=== PATIENT | male | born 1975 | race Caucasian/White ===

== ENCOUNTER 2020-01-22 02:22 | Inpatient (IN) | payer OTHER ==
[2020-01-22] MEDS ORDERED: Adacel (T-DAP) 0.5 ML SYRINGE ONE (02:31)
[2020-01-22] MEDS ORDERED: Fentanyl 100 MCG/2 ML VIAL ONE (02:35)
[2020-01-22 02:45] LABS: Band 2 % (5-11); Eosinophils 2 % (0-10); Hemoglobin 16.6 g/dL (14.0-18.0); Lymphocytes 36 % (21-51); MDiff Complete? YES; Mean Corpuscular HGB CONC 35.5 g/dL (32.0-36.0); Mean Corpuscular Volume 95.6 fL (78.0-98.0); Mean Platelet Volume 9.6 fL (7.4-10.4); Monocytes 4 % (0-10); Neutrophil 47 % (42-75); Platelet Count 232 thou/uL (130-400); Platelet Morphology Comment Appears Adequate; RBC Distribution Width 11.3 % (11.5-14.5); Reactive Lymphocytes 9 % (0-10); Red Blood Cell (RBC) Count 4.88 mill/uL (4.70-6.10); White Blood Cell (WBC) Count 20.8 thou/uL (4.8-10.8)
[2020-01-22 02:49] LABS: Prothrombin Time 13.6 sec (12.0-14.7)
[2020-01-22 02:51] LABS: Actual Bicarbonate (HCO3a) 18.8 mEq/L (22-28); Analyzer IN Cardio ER; Calcium, Ionized (arterial) 1.25 mmol/L (1.12-1.30); Carboxyhemoglobin (COHb) 7.5 gm% (0.0-3.0); O2 Tension (PaO2), arterial 161.3 mmHg (80.0-100.0); Potassium - ABG Lab 3.78 mmol/L (3.70-5.30); pH, Arterial 7.05 (7.35-7.45)
[2020-01-22 02:52] LABS: Puncture Site RRA
[2020-01-22] MEDS ORDERED: Norepinephrine 8 MG/0.9% NS 250 ML ONE ×2 (02:57→09:23)
[2020-01-22 03:10] LABS: ALT (SGPT) 89 U/L (8-55); AST (SGOT) 92 U/L (5-34); Albumin 4.7 g/dL (3.5-5.0); Alkaline Phosphatase 78 U/L (40-110); Anion Gap 17 mmol/L (10-20); BUN (Urea Nitrogen) 11 mg/dL (8.9-20.6); Bilirubin, Total 0.5 mg/dL (0.2-1.2); Calc. Creatinine Clearance 0 mL/min (70-130); Carbon Dioxide 18 mmol/L (22-29); Chloride 108 mmol/L (98-107); Estimated GFR-MDRD 71; Globulin 2.9 g/dL (2.4-3.5); Glucose 171 mg/dL (70-105); Lipase 37 U/L (8-78); Potassium 3.9 mmol/L (3.5-5.1); Protein, Total 7.6 g/dL (6.0-8.3); Sodium 139 mmol/L (136-145)
[2020-01-22 03:37] LABS: Acetaminophen Less than 6.0 mcg/mL (10.0-30.0); Alcohol 223 mg/dL (Less than 10); Salicylate Less than 8.0 mg/dL (15.0-30.0)
[2020-01-22] MEDS ORDERED: Dexamethasone 10 MG/ML VIAL ONE (03:57)
[2020-01-22] MEDS ORDERED: Dextrose 50% Abboject 50 ML SYRINGE SLOW IVP PRN (04:14)
[2020-01-22] MEDS ORDERED: Dextrose 5% in Water 1,000 ML IV PRN (04:14)
[2020-01-22] MEDS ORDERED: Ondansetron ODT 4 MG TAB PO PRN (04:14)
[2020-01-22] MEDS ORDERED: Ventilator Sedation Protocol 1 EACH FS ONE (04:14)
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
[2020-01-22] MEDS ORDERED: Lorazepam 2 MG/ML VIAL SLOW IVP PRN (04:30)
[2020-01-22] MEDS ORDERED: Morphine 2 MG/ML VIAL SLOW IVP PRN (04:30)
[2020-01-22] MEDS ORDERED: DISCONTINUE PREVIOUS NARCOTIC PAIN MEDICATIONS AND BENZODIAZEPINES FS SCH (04:30)
[2020-01-22] MEDS ORDERED: Propofol BOLUS 1,000 MG/100 ML VIAL IV PRN (04:30)
[2020-01-22] MEDS ORDERED: Propofol 1,000 MG/100 ML VIAL IV PRN (04:30)
[2020-01-22] MEDS ORDERED: Fentanyl BOLUS 250 ML IVPB PRN (04:30)
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
[2020-01-22 06:22] LABS: Lactic Acid 2.3 mmol/L (0.5-2.2)
[2020-01-22] MEDS: Sodium Chloride 0.9% 1,000 ML IV SCH ×2 (06:44→14:44)
[2020-01-22 07:43] LABS: Bilirubin Negative (Negative); Blood, Urine Small (Negative); Glucose, Urine (Dipstick) Negative (Negative); Ketone, Urine Negative (Negative); Leukocyte Negative (Negative); Nitrite Negative (Negative); Protein, Urine (Dipstick) 100 mg/dL (Neg-Trace); Specific Gravity, Urine 1.015 (1.005-1.030); Urobilinogen 0.2 mg/dL (Less than 2)
[2020-01-22 07:48] LABS: RBC/HPF 0-3 HPF (0-3); Squamous Epithelial 0-3 HPF (0-3)
[2020-01-22 07:56] LABS: Amphetamine Not Detected (NotDetected); Barbiturates Screen Not Detected (NotDetected); Benzodiazepine Screen Not Detected (NotDetected); Cocaine Metabolite Screen Not Detected (NotDetected); Medtox Control Line Valid? VALID (VALID); Medtox Reader # READER 4; Methadone Not Detected (NotDetected); Methamphetamine Not Detected (NotDetected); Opiate Screen Not Detected (NotDetected); Oxycodone Screen Not Detected (NotDetected); Phencyclidine (PCP) Not Detected (NotDetected); THC/Cannabinoid Screen Detected (NotDetected); Tricyclic Screen Not Detected (NotDetected)
[2020-01-22 08:03] LABS: Clarity Clear (Clear)
[2020-01-22 08:04] LABS: Bacteria/HPF 1+ HPF (None Seen)
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
[2020-01-22] MEDS ORDERED: Iopamidol-370 76% 500 ML 1 ML ONE (12:38)
[2020-01-22] MEDS ORDERED: Norepinephrine 8 MG/0.9% NS 250 ML IVPB SCH (14:39)
[2020-01-22] MEDS: Famotidine 20 MG TAB PO SCH ×2 (14:41→20:51)
[2020-01-22] MEDS: Acetaminophen 650 MG Suppository PR PRN (18:25)
[2020-01-22] MEDS ORDERED: Vecuronium 10 MG VIAL IVP SCH (19:00)
[2020-01-22] MEDS ORDERED: Lidocaine 1% (PF) 30 ML VIAL SC SCH (19:00)
[2020-01-22] MEDS: fentaNYL Citrate/PF 2,000 MCG in Sodium Chloride 0.9% 60 ML IV SCH (19:01)
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
[2020-01-22] MEDS: Senokot S 8.6-50 MG TAB PER TUBE SCH (20:51)
[2020-01-23] MEDS: Sodium Chloride 0.9% 1,000 ML IV SCH ×3 (01:28→17:35)
[2020-01-23 04:42] LABS: #Lymphocytes 0.9 thou/uL (1.20-3.40); #Monocytes 1.5 thou/uL (0.11-0.59); #Neutrophils 17.2 thou/uL (1.40-6.50); %Basophils 0.1 % (0.0-1.0); %Lymphocytes 4.8 % (21.0-51.0); %Monocytes 7.6 % (0.0-10.0); %Neutrophils 87.5 % (42.0-75.0); Hemoglobin 13.9 g/dL (14.0-18.0); Mean Corpuscular HGB CONC 33.2 g/dL (32.0-36.0); Mean Corpuscular Volume 96.4 fL (78.0-98.0); Mean Platelet Volume 9.6 fL (7.4-10.4); Platelet Count 160 thou/uL (130-400); RBC Distribution Width 11.4 % (11.5-14.5); Red Blood Cell (RBC) Count 4.36 mill/uL (4.70-6.10); White Blood Cell (WBC) Count 19.6 thou/uL (4.8-10.8)
[2020-01-23 05:03] LABS: ALT (SGPT) 53 U/L (8-55); AST (SGOT) 31 U/L (5-34); Albumin 3.7 g/dL (3.5-5.0); Alkaline Phosphatase 44 U/L (40-110); Anion Gap 10 mmol/L (10-20); BUN (Urea Nitrogen) 16 mg/dL (8.9-20.6); Calc. Creatinine Clearance 147 mL/min (70-130); Calcium 8.3 mg/dL (7.8-10.44); Carbon Dioxide 23 mmol/L (22-29); Chloride 110 mmol/L (98-107); Estimated GFR-MDRD Greater than 90; Glucose 134 mg/dL (70-105); Potassium 3.9 mmol/L (3.5-5.1); Protein, Total 5.7 g/dL (6.0-8.3); Sodium 139 mmol/L (136-145)
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
[2020-01-23 06:45] LABS: Actual Bicarbonate (HCO3a) 20.5 mEq/L (22-28); Base Excess (BEa) -3.4 mEq/L (-2.0 to +3.0); CO2 Tension 33.9 mmHg (35.0-45.0); Calcium, Ionized (arterial) 1.18 mmol/L (1.12-1.30); Carboxyhemoglobin (COHb) 0.8 gm% (0.0-3.0); Hemoglobin (Hb) 14.8 g/dL (14.0-18.0); Potassium - ABG Lab 3.93 mmol/L (3.70-5.30)
[2020-01-23 07:41] LABS: O2 Tension (PaO2), arterial 47.5 mmHg (80.0-100.0); Puncture Site RRAD
[2020-01-23 07:42] LABS: ALV-art Gradient 195.325 (0-20)
--- NOTE | 2020-01-23 07:54 | RAD ---
Chest one view HISTORY: Intubated. Dyspnea. Aspiration. COMPARISON: 01/22/2020. FINDINGS: Cardiac silhouette is magnified by projection. Pulmonary vasculature is slightly engorged. Bilateral perihilar infiltrates have become more dense, left greater than right. Mediastinum is midline. Lines and tubes appear unchanged in position. No evidence of pneumothorax. IMPRESSION : Developing bilateral perihilar infiltrates could be related to vascular congestion or developing neur ogenic edema.
[2020-01-23] MEDS ORDERED: EPINEPHrine 1 MG/ML AMP ONE (08:01)
[2020-01-23] MEDS ORDERED: Bupivacaine 0.25% HCL 30 ML VIAL ONE (08:01)
[2020-01-23] MEDS ORDERED: Lidocaine 1% w/Epinephrine 1:100K 20 ML VIAL ONE (08:12)
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
[2020-01-23] MEDS ORDERED: Albumin 25% 0 ML ONE (08:32)
[2020-01-23] MEDS: Midazolam HCl 2 mg/2 ml Vial SLOW IVP SCH (08:42)
[2020-01-23] MEDS: Fentanyl 100 MCG/2 ML VIAL SLOW IVP SCH ×2 (08:55→08:56)
[2020-01-23] MEDS: Famotidine 20 MG TAB PO SCH ×2 (09:00→20:29)
[2020-01-23] MEDS ORDERED: CEFAZOLIN 2 GM in Premix Bag 1 BAG IVPB SCH (09:15)
[2020-01-23] MEDS ORDERED: Midazolam HCl 2 mg/2 ml Vial ONE ×2 (09:25→09:37)
[2020-01-23] MEDS ORDERED: Norepinephrine 8 MG/0.9% NS 250 ML ONE (09:37)
[2020-01-23] MEDS: Senokot S 8.6-50 MG TAB PER TUBE SCH ×2 (10:41→20:29)
[2020-01-23] MEDS: fentaNYL Citrate/PF 2,000 MCG in Sodium Chloride 0.9% 60 ML IV SCH (10:42)
[2020-01-23] MEDS: HumaLOG 300 UNITS/3 ML VIAL SC PRN (10:48)
[2020-01-23] MEDS: Piperacillin/Tazobactam 4.5 GM in Sodium Chloride 0.9% 100 ML IVPB SCH ×2 (11:37→17:33)
[2020-01-23 12:19] LABS: SARS-CoV-2 MS2 Positive; SARS-CoV-2 N Gene Negative; SARS-CoV-2 S Gene Negative; SARS-CoV-2 by NAA Not Detected (NotDetected); SARS-CoV-2 orf1ab Negative
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
[2020-01-23] MEDS: Acetaminophen 650 MG Suppository PR PRN (15:10)
[2020-01-23] MEDS: Enoxaparin Sodium 30 MG/0.3 ML SYRINGE SC SCH (20:29)
[2020-01-24] MEDS: Sodium Chloride 0.9% 1,000 ML IV SCH ×3 (01:08→16:44)
[2020-01-24] MEDS: Piperacillin/Tazobactam 4.5 GM in Sodium Chloride 0.9% 100 ML IVPB SCH ×4 (01:08→17:34)
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
[2020-01-24] MEDS: Acetaminophen 650 MG Suppository PR PRN (04:26)
[2020-01-24 05:28] LABS: Anion Gap 8 mmol/L (10-20); BUN (Urea Nitrogen) 19 mg/dL (8.9-20.6); Calc. Creatinine Clearance 131 mL/min (70-130); Calcium 8.7 mg/dL (7.8-10.44); Carbon Dioxide 28 mmol/L (22-29); Chloride 109 mmol/L (98-107); Estimated GFR-MDRD 87; Glucose 101 mg/dL (70-105); Magnesium 2.1 mg/dL (1.6-2.6); Potassium 4.2 mmol/L (3.5-5.1); Sodium 141 mmol/L (136-145)
[2020-01-24 05:34] LABS: Phosphorus Less than 1.0 mg/dL (2.3-4.7)
[2020-01-24 05:36] LABS: #Lymphocytes 1.2 thou/uL (1.20-3.40); #Neutrophils 8.6 thou/uL (1.40-6.50); %Basophils 0.1 % (0.0-1.0); %Eosinophils 0.1 % (0.0-10.0); %Lymphocytes 10.9 % (21.0-51.0); %Monocytes 9.2 % (0.0-10.0); %Neutrophils 79.7 % (42.0-75.0); Hemoglobin 11.8 g/dL (14.0-18.0); Mean Corpuscular HGB CONC 33.6 g/dL (32.0-36.0); Mean Corpuscular Hemoglobin 32.9 pg (27.0-31.0); Mean Corpuscular Volume 98.1 fL (78.0-98.0); Platelet Count 106 thou/uL (130-400); Platelet Morphology Comment Appears Decreased; RBC Distribution Width 11.5 % (11.5-14.5); Red Blood Cell (RBC) Count 3.58 mill/uL (4.70-6.10); White Blood Cell (WBC) Count 10.7 thou/uL (4.8-10.8)
[2020-01-24] MEDS ORDERED: Acetaminophen 650 MG/20.3 ML UDCUP PO PRN (05:47)
[2020-01-24] MEDS ORDERED: PHOS-NAK 1 PKT PACK PO SCH (06:00)
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
[2020-01-24] MEDS ORDERED: Potassium Phosphate 30 MMOL in Sodium Chloride 0.9% 250 ML 250 ML IVPB SCH (07:30)
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
[2020-01-24] MEDS: Senokot S 8.6-50 MG TAB PER TUBE SCH ×2 (08:30→21:13)
[2020-01-24] MEDS: Enoxaparin Sodium 30 MG/0.3 ML SYRINGE SC SCH ×2 (08:31→21:14)
[2020-01-24] MEDS: Famotidine/PF 20 mg/2ml Vial SLOW IVP SCH ×2 (08:31→21:14)
--- NOTE | 2020-01-24 10:55 | PRG ---
DATE OF SERVICE: 01/24/2020 Mr. Centeno is generally clinically unchanged. He is alert, sitting up in bed with a cervical collar on. He is able to mouth words and does seem to have some pain, which his nurse has just increased his intravenous narcotic for. Overall, his prognosis for neurologic recovery remains quite poor. Focus will be on his rehab. He will need to wear the cervical collar at all times and can be maximized with DVT prophylaxis from a neurosurgical perspective. I will plan a followup x-ray in 4 weeks and we can coordinate this at his rehab or LTAC if it is more convenient. Job ID: [id number]
[2020-01-24] MEDS: fentaNYL Citrate/PF 2,000 MCG in Sodium Chloride 0.9% 60 ML IV SCH (11:35)
[2020-01-24 15:07] LABS: Anion Gap 7 mmol/L (10-20); BUN (Urea Nitrogen) 22 mg/dL (8.9-20.6); Calc. Creatinine Clearance 116 mL/min (70-130); Calcium 8.6 mg/dL (7.8-10.44); Carbon Dioxide 30 mmol/L (22-29); Chloride 110 mmol/L (98-107); Estimated GFR-MDRD 76; Glucose 104 mg/dL (70-105); Magnesium 2.4 mg/dL (1.6-2.6); Potassium 4.9 mmol/L (3.5-5.1); Sodium 142 mmol/L (136-145)
[2020-01-24] MEDS ORDERED: Pancrelipase DR 12,000 1 CAP FS PRN (16:24)
[2020-01-24] MEDS ORDERED: Sodium Bicarbonate Tab 325 MG TAB PER TUBE PRN (16:24)
[2020-01-25] MEDS: Piperacillin/Tazobactam 4.5 GM in Sodium Chloride 0.9% 100 ML IVPB SCH ×2 (00:22→06:01)
[2020-01-25] MEDS ORDERED: Lorazepam 2 MG/ML VIAL SLOW IVP SCH (01:15)
--- NOTE | 2020-01-25 02:26 | PDOC.EVN ---
Event Note - Event Note Event Note: Notified that pt was having what appeared to be seizure activity, facial twitching, eye movement and appearing less responsive. 2mg Ativan given, Stat labs, BMP, Mg, Phos, PROLACTIN, CBC and cultures ordered. CXR and Brain CT ordered. Brain CT showed no intracranial changes, epidural spinal hematoma noted at C1-2. Upon return from CT scanner it was noted that pts temp was > 106. Cooling blankets applied and one gram of tylenol via peg tube.
[2020-01-25 02:42] LABS: #Lymphocytes 0.8 thou/uL (1.20-3.40); #Monocytes 0.9 thou/uL (0.11-0.59); #Neutrophils 7.5 thou/uL (1.40-6.50); %Eosinophils 0.1 % (0.0-10.0); %Lymphocytes 8.9 % (21.0-51.0); %Neutrophils 80.9 % (42.0-75.0); Mean Corpuscular HGB CONC 33.4 g/dL (32.0-36.0); Mean Corpuscular Hemoglobin 33.6 pg (27.0-31.0); Mean Platelet Volume 9.5 fL (7.4-10.4); Platelet Count 79 thou/uL (130-400); RBC Distribution Width 11.4 % (11.5-14.5); Red Blood Cell (RBC) Count 3.28 mill/uL (4.70-6.10); White Blood Cell (WBC) Count 9.3 thou/uL (4.8-10.8)
[2020-01-25] MEDS ORDERED: Acetaminophen 650 MG/20.3 ML UDCUP PO SCH (03:00)
[2020-01-25 03:22] LABS: Anion Gap 8 mmol/L (10-20); BUN (Urea Nitrogen) 23 mg/dL (8.9-20.6); Calc. Creatinine Clearance 99 mL/min (70-130); Calcium 8.4 mg/dL (7.8-10.44); Carbon Dioxide 31 mmol/L (22-29); Chloride 107 mmol/L (98-107); Estimated GFR-MDRD 64; Glucose 121 mg/dL (70-105); Magnesium 2.4 mg/dL (1.6-2.6); Phosphorus Less than 1.0 mg/dL (2.3-4.7); Potassium 4.5 mmol/L (3.5-5.1); Sodium 141 mmol/L (136-145)
[2020-01-25] MEDS ORDERED: Sodium Phosphate 30 MMOL in Sodium Chloride 0.9% 250 ML 250 ML IVPB SCH ×2 (04:00→09:00)
[2020-01-25 04:54] LABS: Bilirubin Negative (Negative); Blood, Urine Trace (Negative); Glucose, Urine (Dipstick) Negative (Negative); Ketone, Urine Negative (Negative); Leukocyte Negative (Negative); Nitrite Negative (Negative); Protein, Urine (Dipstick) Trace mg/dL (Neg-Trace); Specific Gravity, Urine 1.025 (1.005-1.030); pH, Urine 5.5 (5.0-9.0)
[2020-01-25 05:01] LABS: Clarity Clear (Clear)
[2020-01-25 05:02] LABS: Urine Culture Reflex No No
[2020-01-25 05:03] LABS: Bacteria/HPF None Seen HPF (None Seen); RBC/HPF 0-3 HPF (0-3); Squamous Epithelial 0-3 HPF (0-3); WBC/HPF 0-3 HPF (0-3)
--- NOTE | 2020-01-25 07:18 | PRG ---
DATE OF SERVICE: 01/25/2020 SUBJECTIVE: Overnight, the patient had significant elevation of his temperature up to 106 and a seizure event. He was evaluated with a repeat noncontrast CT head and neck, which is stable. His labs show a normal WBC at 9.3. His fever was treated and he is improved this morning. CXR shows worsening bilateral infiltrates. He is curretly on zosyn. OBJECTIVE: Afebrile, VSS. On exam, he awakens easily and responds appropriately to questions by shaking his head and mouthing words. PLAN: We will defer ongoing medical management and worsening bilateral infiltrates to the Trauma team. He is currently on Zosyn and we will continue. We will continue cooling measures and to monitor his temperature and lab work closely. Continue to work with PT, OT, and work toward placement. Job ID: [id number] MTDKesha
--- NOTE | 2020-01-25 07:57 | RAD ---
XR Chest 1 View Portable History: Respiratory failure Comparison: Radiograph 2 days prior Findings: Progressive increase airspace opacity. The lungs. No pneumothorax. No acute osseous abnorma lity. Tracheostomy tube tip is at level of the clavicles. Impression: Multifocal airspace opacities concerning for progressive edema.
[2020-01-25 08:17] LABS: Actual Bicarbonate (HCO3a) 26.8 mEq/L (22-28); Base Excess (BEa) -0.1 mEq/L (-2.0 to +3.0); CO2 Tension 54.6 mmHg (35.0-45.0); Calcium, Ionized (arterial) 1.15 mmol/L (1.12-1.30); Carboxyhemoglobin (COHb) 0.2 gm% (0.0-3.0); Hemoglobin (Hb) 11.2 g/dL (14.0-18.0); O2 Tension (PaO2), arterial 137.1 mmHg (80.0-100.0); Potassium - ABG Lab 3.56 mmol/L (3.70-5.30); pH, Arterial 7.31 (7.35-7.45)
[2020-01-25 08:18] LABS: Puncture Site RBA
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
[2020-01-25] MEDS: Sodium Chloride 0.9% 1,000 ML IV SCH ×4 (08:45→19:55)
[2020-01-25] MEDS: Acetaminophen 650 MG/20.3 ML UDCUP PO SCH ×3 (08:45→19:55)
[2020-01-25] MEDS: Famotidine/PF 20 mg/2ml Vial SLOW IVP SCH ×2 (08:46→19:55)
[2020-01-25] MEDS: Senokot S 8.6-50 MG TAB PER TUBE SCH ×2 (08:46→19:56)
[2020-01-25 10:28] LABS: Actual Bicarbonate (HCO3a) 27.7 mEq/L (22-28); Base Excess (BEa) 2.3 mEq/L (-2.0 to +3.0); CO2 Tension 46.2 mmHg (35.0-45.0); Calcium, Ionized (arterial) 1.12 mmol/L (1.12-1.30); Carboxyhemoglobin (COHb) 0.2 gm% (0.0-3.0); Hemoglobin (Hb) 11.4 g/dL (14.0-18.0); Potassium - ABG Lab 3.74 mmol/L (3.70-5.30)
[2020-01-25 10:32] LABS: Puncture Site RRA
--- NOTE | 2020-01-25 12:04 | ULT ---
EXAM: Bilateral lower extremity venous Doppler HISTORY: Paraplegia, immobile patient. High-risk for DVT. FINDINGS: Grayscale, color-flow, Doppler evaluation, spectral analysis of the bilateral lower extremity venous structures is performed with 2-D imaging. The bilateral common femoral, superficial femoral, popliteal, posterior tibial, proximal greater saphenous and profunda femoral veins are imaged. There is normal luminal compressibility, flow, and augmentation in the visualized deep venous structu res of the bilateral lower extremities. IMPRESSION: No evidence of a deep vein thrombosis in the visualized deep venous structures bilateral lower extrem ities.
[2020-01-25] MEDS: Cefepime 2 GM in Sodium Chloride 0.9% 100 ML IVPB SCH ×2 (13:31→21:52)
[2020-01-25] MEDS: traMADol HCl 50 MG TAB PO PRN ×2 (13:39→20:05)
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
[2020-01-25] MEDS: Enoxaparin Sodium 30 MG/0.3 ML SYRINGE SC SCH (19:56)
[2020-01-25 20:17] LABS: Anion Gap 12 mmol/L (10-20); BUN (Urea Nitrogen) 26 mg/dL (8.9-20.6); Calc. Creatinine Clearance 149 mL/min (70-130); Calcium 8.2 mg/dL (7.8-10.44); Carbon Dioxide 27 mmol/L (22-29); Chloride 109 mmol/L (98-107); Estimated GFR-MDRD Greater than 90; Glucose 124 mg/dL (70-105); Magnesium 2.3 mg/dL (1.6-2.6); Phosphorus 4.1 mg/dL (2.3-4.7); Potassium 3.9 mmol/L (3.5-5.1); Sodium 144 mmol/L (136-145)
--- NOTE | 2020-01-25 21:58 | PRG ---
DATE OF SERVICE: 01/25/2020 SUBJECTIVE: The patient was very febrile overnight, reportedly to a high of 106 degrees. He had a seizure. CT of the head is normal. During the CT of the head, they did visualize down to C2 and there was some right-sided blood in the cervical canal. This is noncompressive and is at the site of the C2 fracture. IMPRESSION AND PLAN: The CT of the head and neck do not explain the seizure or the fever. The blood in the cervical canal is nonsurgical and will resolve. I suspect his depressed mental status was postictal in nature or perhaps represents alcohol withdrawal or delirium tremens. I have recommended surveillance ultrasound for DVT today. Job ID: [id number]
[2020-01-25] MEDS: Morphine 4 MG/ML VIAL SLOW IVP PRN (22:00)
[2020-01-26] MEDS: Acetaminophen 650 MG/20.3 ML UDCUP PO SCH ×4 (02:55→20:11)
[2020-01-26] MEDS: Morphine 4 MG/ML VIAL SLOW IVP PRN ×4 (02:58→23:34)
--- NOTE | 2020-01-26 03:12 | PRG ---
DATE OF SERVICE: 01/25/2020 SUBJECTIVE: The patient was seen during evening rounds, resting comfortably on full ventilatory support. The patient's fentanyl drip was discontinued earlier today and has been tolerating without. The patient's urinary output continues to be adequate for the patient's age and weight. PLAN: Continue antibiotics. Increase physical and occupational therapy. Job ID: [id number]
[2020-01-26 03:42] LABS: Band 27 % (5-11); Eosinophils 1 % (0-10); Hemoglobin 11.1 g/dL (14.0-18.0); Lymphocytes 16 % (21-51); MDiff Complete? YES; Mean Corpuscular Hemoglobin 33.5 pg (27.0-31.0); Mean Corpuscular Volume 98.7 fL (78.0-98.0); Mean Platelet Volume 10.1 fL (7.4-10.4); Monocytes 4 % (0-10); Neutrophil 52 % (42-75); Platelet Count 88 thou/uL (130-400); Platelet Morphology Comment Appears Decreased; RBC Distribution Width 11.5 % (11.5-14.5); White Blood Cell (WBC) Count 9.3 thou/uL (4.8-10.8)
[2020-01-26 03:46] LABS: Anion Gap 10 mmol/L (10-20); BUN (Urea Nitrogen) 26 mg/dL (8.9-20.6); Calc. Creatinine Clearance 146 mL/min (70-130); Calcium 8.4 mg/dL (7.8-10.44); Carbon Dioxide 28 mmol/L (22-29); Chloride 111 mmol/L (98-107); Estimated GFR-MDRD Greater than 90; Glucose 162 mg/dL (70-105); Magnesium 2.3 mg/dL (1.6-2.6); Phosphorus 1.8 mg/dL (2.3-4.7); Sodium 145 mmol/L (136-145)
[2020-01-26] MEDS ORDERED: Sodium Phosphate 30 MMOL in Sodium Chloride 0.9% 250 ML 250 ML IVPB SCH (04:15)
[2020-01-26] MEDS: Cefepime 2 GM in Sodium Chloride 0.9% 100 ML IVPB SCH ×3 (05:04→22:09)
[2020-01-26] MEDS: Sodium Chloride 0.9% 1,000 ML IV SCH (05:53)
--- NOTE | 2020-01-26 06:27 | PRG ---
DATE OF SERVICE: 01/26/2020 SUBJECTIVE: The patient has had no overnight events. He continues to run intermittent fever of as high as 102, but does respond to cooling measures. He had an ultrasound of his legs yesterday, which was negative for DVTs. He is tolerating his tube feeds. On exam this morning, his neurological exam is unchanged. He remains responsive with eye opening and mouthing words as well as head nods. The patient's neurologic exam is stable. He continues to get treatment for his suspected pneumonia. I will defer medical management to the Trauma Team. Continue PT, OT, and working towards placement. Job ID: [id number]
[2020-01-26 07:09] LABS: Actual Bicarbonate (HCO3a) 26.6 mEq/L (22-28); Base Excess (BEa) 2.2 mEq/L (-2.0 to +3.0); CO2 Tension 40.7 mmHg (35.0-45.0); Calcium, Ionized (arterial) 1.16 mmol/L (1.12-1.30); Hemoglobin (Hb) 11.7 g/dL (14.0-18.0); Potassium - ABG Lab 4.04 mmol/L (3.70-5.30); pH, Arterial 7.43 (7.35-7.45)
[2020-01-26 07:14] LABS: ALV-art Gradient 180.975 (0-20); Puncture Site RRA
[2020-01-26] MEDS: traMADol HCl 50 MG TAB PO PRN (07:32)
[2020-01-26] MEDS ORDERED: Magnesium 2 GM/50 ML 2 GM in Premix Bag 1 BAG IVPB SCH (07:45)
[2020-01-26] MEDS ORDERED: VANCOMYCIN IVPB PRN (08:19)
[2020-01-26] MEDS: Famotidine/PF 20 mg/2ml Vial SLOW IVP SCH ×2 (08:30→20:12)
[2020-01-26] MEDS: Senokot S 8.6-50 MG TAB PER TUBE SCH ×2 (08:31→20:12)
[2020-01-26] MEDS: Enoxaparin Sodium 30 MG/0.3 ML SYRINGE SC SCH ×2 (08:31→20:12)
[2020-01-26] MEDS: Vancomycin 1.5 GRAM/300 ML BAG 1.5 GM in Premix Bag 1 BAG IVPB SCH ×2 (09:02→16:02)
[2020-01-26] MEDS: Saccharomyces boulardii 250 MG CAP PO SCH ×2 (09:02→20:12)
--- NOTE | 2020-01-26 09:55 | RAD ---
CHEST 1 VIEW: Date: 01/26/2020 INDICATION: History of pneumonia. COMPARISON: Prior exam dated 01/25/2020. IMPRESSION: Bilateral lower lobe air space disease is stable appearing. Tracheostomy tube is unchanged. No pleura l effusion or pneumothorax is grossly evident. POS: BH
[2020-01-26] MEDS ORDERED: Furosemide 20 MG/2 ML VIAL SLOW IVP SCH (10:30)
[2020-01-26] MEDS: Midazolam HCl 2 mg/2 ml Vial SLOW IVP SCH (10:39)
[2020-01-26] MEDS: HumaLOG 300 UNITS/3 ML VIAL SC PRN ×2 (12:42→18:45)
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
[2020-01-26 18:04] LABS: Anion Gap 10 mmol/L (10-20); BUN (Urea Nitrogen) 25 mg/dL (8.9-20.6); Calc. Creatinine Clearance 159 mL/min (70-130); Carbon Dioxide 26 mmol/L (22-29); Chloride 109 mmol/L (98-107); Estimated GFR-MDRD Greater than 90; Glucose 169 mg/dL (70-105); Magnesium 2.4 mg/dL (1.6-2.6); Phosphorus 2.3 mg/dL (2.3-4.7); Potassium 3.9 mmol/L (3.5-5.1); Sodium 141 mmol/L (136-145)
[2020-01-26] MEDS ORDERED: Potassium Phosphate 30 MMOL in Sodium Chloride 0.9% 250 ML 250 ML IVPB SCH (19:00)
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
[2020-01-27 00:51] LABS: Vancomycin, Trough 8.8 ug/mL
[2020-01-27] MEDS: Vancomycin 1.5 GRAM/300 ML BAG 1.5 GM in Premix Bag 1 BAG IVPB SCH (01:25)
[2020-01-27] MEDS: Vancomycin HCl 1.75 GM in Sodium Chloride 0.9% 500 ML IVPB SCH ×3 (02:06→18:08)
[2020-01-27] MEDS: Acetaminophen 650 MG/20.3 ML UDCUP PO SCH ×4 (03:11→20:48)
[2020-01-27 04:01] LABS: Anion Gap 10 mmol/L (10-20); BUN (Urea Nitrogen) 28 mg/dL (8.9-20.6); Calc. Creatinine Clearance 172 mL/min (70-130); Calcium 8.4 mg/dL (7.8-10.44); Carbon Dioxide 26 mmol/L (22-29); Chloride 112 mmol/L (98-107); Estimated GFR-MDRD Greater than 90; Glucose 188 mg/dL (70-105); Magnesium 2.4 mg/dL (1.6-2.6); Phosphorus 2.6 mg/dL (2.3-4.7); Sodium 144 mmol/L (136-145)
[2020-01-27 04:03] LABS: Band 5 % (5-11); Hemoglobin 11.3 g/dL (14.0-18.0); Hypochromia SLIGHT = 6-15 cells (100X) (0-5/hpf); Lymphocytes 6 % (21-51); MDiff Complete? YES; Mean Corpuscular HGB CONC 34.1 g/dL (32.0-36.0); Mean Corpuscular Hemoglobin 34.1 pg (27.0-31.0); Mean Corpuscular Volume 99.9 fL (78.0-98.0); Monocytes 8 % (0-10); Neutrophil 81 % (42-75); Platelet Count 93 thou/uL (130-400); Platelet Morphology Comment Appears Decreased; RBC Distribution Width 11.6 % (11.5-14.5); Red Blood Cell (RBC) Count 3.32 mill/uL (4.70-6.10); White Blood Cell (WBC) Count 7.4 thou/uL (4.8-10.8)
[2020-01-27] MEDS: HumaLOG 300 UNITS/3 ML VIAL SC PRN ×2 (05:15→17:04)
[2020-01-27] MEDS: Cefepime 2 GM in Sodium Chloride 0.9% 100 ML IVPB SCH ×3 (05:15→20:50)
[2020-01-27] MEDS: Morphine 4 MG/ML VIAL SLOW IVP PRN ×3 (05:20→19:16)
[2020-01-27] MEDS ORDERED: Atropine Sulfate 1 mg/10 ml Syringe ONE (05:55)
--- NOTE | 2020-01-27 06:42 | PRG ---
DATE OF SERVICE: 01/27/2020 This morning during trach care, the patient had a bradycardic and subsequent short period of asystole several times. Sohail whiting was called and the appropriate care providers presented to the bedside. Pt has ROSC. The patient was treated with 0.5 mg of atropine as ordered by trauma team. He is being monitored closely at the bedside He appears somewhat uncomfortable, but is responding appropriately to eye blinking, head nod and mouthing words. He is a bit diaphoretic. His heart rate is currently in the 90s. The remainder of his neurologic exam is unchanged. The patient has suffered several short periods of asystole following trach care. We will monitor closely. Trauma is at the bedside and assisting with medical management. Job ID: [id number] [facility]
[2020-01-27 07:20] LABS: Actual Bicarbonate (HCO3a) 25.5 mEq/L (22-28); Base Excess (BEa) 0.7 mEq/L (-2.0 to +3.0); CO2 Tension 41.8 mmHg (35.0-45.0); Carboxyhemoglobin (COHb) 0.3 gm% (0.0-3.0); Hemoglobin (Hb) 11.3 g/dL (14.0-18.0); O2 Tension (PaO2), arterial 81.6 mmHg (80.0-100.0); Potassium - ABG Lab 4.14 mmol/L (3.70-5.30)
[2020-01-27 07:40] LABS: Puncture Site RRAD
--- NOTE | 2020-01-27 09:03 | RAD ---
CHEST 1 VIEW PORTABLE: HISTORY: Followup pneumonia. COMPARISON: 01/26/2020. FINDINGS: Tracheostomy tube in place. Persistent bilateral perihilar and lower lobe opacity changes with some bilateral pleural effusion changes. Overall appearance is little changed from prior study. IMPRESSION: Stable bilateral vascular congestion and bilateral interstitial and alveolar opacity changes, particu larly in the mid and lower lung zones with evidence for bilateral pleural effusions. Continued short -term followup. POS: OFF
[2020-01-27] MEDS: Enoxaparin Sodium 30 MG/0.3 ML SYRINGE SC SCH ×2 (09:24→20:49)
[2020-01-27] MEDS: Saccharomyces boulardii 250 MG CAP PO SCH ×2 (09:26→20:50)
[2020-01-27] MEDS: Famotidine/PF 20 mg/2ml Vial SLOW IVP SCH ×2 (09:26→20:47)
[2020-01-27] MEDS ORDERED: Sodium Phosphate 30 MMOL in Sodium Chloride 0.9% 250 ML 250 ML IVPB SCH (09:30)
[2020-01-27] MEDS: Senokot S 8.6-50 MG TAB PER TUBE SCH ×2 (09:32→20:47)
--- NOTE | 2020-01-27 09:33 | PRG ---
DATE OF SERVICE: 01/27/2020 Mr. Centeno is now resting comfortably. He had an issue with disconnection from the ventilator circuit, which resulted in some mild hemodynamic instability, which has now been effectively treated. Fever remains an issue, although it is gradually improving. He had no evidence of DVT on ultrasound. From a neurosurgical perspective, we have no plans for surgical intervention. I will arrange for followup x-rays either here or in rehab in 4 weeks. I would recommend a cervical collar at all times and from a neurosurgical perspective, he can be discharged to long-term placement at any point. Job ID: [id number]
[2020-01-27] MEDS: Furosemide 20 MG/2 ML VIAL SLOW IVP SCH ×2 (10:05→20:47)
[2020-01-27] MEDS: Ibuprofen 100 MG/5 ML UDCUP PER TUBE PRN (13:30)
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
--- NOTE | 2020-01-27 17:03 | EKG ---
Test Reason : STAT Blood Pressure : / mmHG Vent. Rate : 028 BPM Atrial Rate : 038 BPM P-R Int : 124 ms QRS Dur : 090 ms QT Int : 384 ms P-R-T Axes : 062 086 068 degrees QTc Int : 261 ms Marked sinus bradycardia with sinus arrest serious more than 2 second pauses Abnormal ECG When compared with ECG of 22-JAN-2020 04:09, (Unconfirmed) Vent. rate has decreased BY 34 BPM Non-specific change in ST segment in Lateral leads Nonspecific T wave abnormality now evident in Inferior leads Nonspecific T wave abnormality, worse in Anterolateral leads QT has shortened Confirmed by DR. Kenny COFFMAN ([id number]) on 01/27/2020 5:03:19 PM Referred By: Richard AMANDA Confirmed By:DR. Kenny COFFMAN
[2020-01-27 18:33] LABS: Anion Gap 11 mmol/L (10-20); BUN (Urea Nitrogen) 31 mg/dL (8.9-20.6); Calc. Creatinine Clearance 138 mL/min (70-130); Calcium 8.6 mg/dL (7.8-10.44); Carbon Dioxide 27 mmol/L (22-29); Chloride 110 mmol/L (98-107); Estimated GFR-MDRD 90; Glucose 195 mg/dL (70-105); Magnesium 2.5 mg/dL (1.6-2.6); Phosphorus 3.7 mg/dL (2.3-4.7); Potassium 4.2 mmol/L (3.5-5.1); Sodium 144 mmol/L (136-145)
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
[2020-01-27] MEDS: traMADol HCl 50 MG TAB PO SCH (23:59)
[2020-01-28] MEDS: Vancomycin HCl 1.75 GM in Sodium Chloride 0.9% 500 ML IVPB SCH ×3 (01:16→18:18)
[2020-01-28 01:23] LABS: Vancomycin, Trough 18.3 ug/mL
[2020-01-28] MEDS: Acetaminophen 650 MG/20.3 ML UDCUP PO SCH ×4 (03:24→20:11)
[2020-01-28 04:21] LABS: Band 7 % (5-11); Eosinophils 1 % (0-10); Hemoglobin 10.9 g/dL (14.0-18.0); Lymphocytes 11 % (21-51); MDiff Complete? YES; Mean Corpuscular Hemoglobin 33.3 pg (27.0-31.0); Mean Platelet Volume 10.2 fL (7.4-10.4); Monocytes 11 % (0-10); Myelocyte 1 % (0-0); Neutrophil 69 % (42-75); Platelet Count 121 thou/uL (130-400); RBC Distribution Width 11.7 % (11.5-14.5); Red Blood Cell (RBC) Count 3.26 mill/uL (4.70-6.10); White Blood Cell (WBC) Count 8.6 thou/uL (4.8-10.8)
[2020-01-28 04:44] LABS: Anion Gap 12 mmol/L (10-20); BUN (Urea Nitrogen) 30 mg/dL (8.9-20.6); Calc. Creatinine Clearance 161 mL/min (70-130); Calcium 8.6 mg/dL (7.8-10.44); Carbon Dioxide 27 mmol/L (22-29); Chloride 111 mmol/L (98-107); Estimated GFR-MDRD Greater than 90; Glucose 150 mg/dL (70-105); Magnesium 2.4 mg/dL (1.6-2.6); Phosphorus 2.6 mg/dL (2.3-4.7); Potassium 4.1 mmol/L (3.5-5.1); Sodium 146 mmol/L (136-145)
[2020-01-28] MEDS: Cefepime 2 GM in Sodium Chloride 0.9% 100 ML IVPB SCH ×3 (05:28→21:28)
[2020-01-28] MEDS: traMADol HCl 50 MG TAB PO SCH ×4 (05:28→23:57)
--- NOTE | 2020-01-28 07:52 | RAD ---
Chest AP view INDICATION: Pneumonia COMPARISON: Prior exam dated January 27, 2020 FINDINGS: Patient is slightly rotated to the right. Lungs: Bilateral lower lobe airspace disease, left greater than right is stable. Cardiac silhouette: Heart size remains mildly prominent Pulmonary vasculature: Pulmonary vascular congestion persists Pleural spaces: Tiny right and small left pleural effusions are again seen Upper abdomen: No abnormality seen. Osseous structures: No acute osseous abnormality. Additional findings: Tracheostomy tube is unchanged. IMPRESSION: Largely stable exam when accounting for slight differences in positioning.
[2020-01-28] MEDS ORDERED: Atropine Sulfate 1 mg/10 ml Syringe ONE (08:27)
[2020-01-28] MEDS ORDERED: Potassium Phosphate 30 MMOL in Sodium Chloride 0.9% 250 ML 250 ML IVPB SCH (08:45)
[2020-01-28] MEDS: Enoxaparin Sodium 30 MG/0.3 ML SYRINGE SC SCH ×2 (09:50→20:11)
[2020-01-28] MEDS: Famotidine/PF 20 mg/2ml Vial SLOW IVP SCH ×2 (09:58→20:11)
[2020-01-28] MEDS: Micafungin 100 MG in Sodium Chloride 0.9% 100 ML IVPB SCH (09:59)
[2020-01-28] MEDS: Saccharomyces boulardii 250 MG CAP PO SCH ×2 (10:00→20:12)
[2020-01-28] MEDS: Senokot S 8.6-50 MG TAB PER TUBE SCH ×2 (10:00→20:12)
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
[2020-01-28] MEDS ORDERED: CEFAZOLIN 1 GM VIAL ONE (15:12)
[2020-01-28] MEDS ORDERED: Gentamicin 80 MG/2 ML VIAL ONE (15:12)
[2020-01-28 16:43] LABS: Anion Gap 5 mmol/L (10-20); BUN (Urea Nitrogen) 27 mg/dL (8.9-20.6); Calc. Creatinine Clearance 151 mL/min (70-130); Calcium 8.4 mg/dL (7.8-10.44); Carbon Dioxide 26 mmol/L (22-29); Chloride 117 mmol/L (98-107); Estimated GFR-MDRD Greater than 90; Glucose 122 mg/dL (70-105); Potassium 4.3 mmol/L (3.5-5.1); Sodium 144 mmol/L (136-145)
[2020-01-28 17:02] LABS: Magnesium 2.2 mg/dL (1.6-2.6); Phosphorus 2.9 mg/dL (2.3-4.7)
--- NOTE | 2020-01-28 19:33 | RAD ---
CHEST 1 VIEW PORTABLE: Date: 01/28/2020 HISTORY: Post cardiac device placement. COMPARISON: 01/28/2020. FINDINGS: Tracheostomy tube in place. Placement of a left ICD. No evidence for pneumothorax. Bilateral patchy a lveolar pulmonary opacity changes are again noted with some blunting in the left costophrenic angle, probably some pleural effusion. IMPRESSION: Placement of left ICD without pneumothorax. Otherwise overall stable chest. Continue short-term follo w-up. POS: RRE
--- NOTE | 2020-01-28 19:52 | CCLSPC ---
INDICATION FOR PROCEDURE: A 44-year-old patient with asystole after having severe spinal cord injury. He had episodes of asystole. He was advised to undergo pacemaker insertion. PROCEDURE IN DETAIL: He was taken to cardiac biological lab technician where this was performed today without any difficulties or complications. He was implanted with a dual-chamber pacemaker from [employer] with two screw-in leads, one in the atrium, one in the ventricle. The pacemaker set with the upper rate of 120. The lower rate was set at 60. There were no difficulties or complications encountered. He was implanted with an MRI compatible device, an Danielle dual-chamber pacemaker from [employer]. The full dictated note can be found in the chart. Job ID: [id number]
[2020-01-28] MEDS: Lorazepam 0.5 MG TAB PO PRN (21:29)
[2020-01-28] MEDS: Morphine 4 MG/ML VIAL SLOW IVP PRN (21:45)
[2020-01-29 02:01] LABS: Vancomycin, Trough 17.9 ug/mL
[2020-01-29] MEDS: Ibuprofen 100 MG/5 ML UDCUP PER TUBE PRN (02:19)
[2020-01-29] MEDS: Acetaminophen 650 MG/20.3 ML UDCUP PO SCH ×4 (02:19→21:30)
[2020-01-29] MEDS ORDERED: Melatonin 3 MG TAB PO PRN (02:27)
[2020-01-29] MEDS: Vancomycin HCl 1.75 GM in Sodium Chloride 0.9% 500 ML IVPB SCH ×3 (02:27→17:30)
[2020-01-29 03:42] LABS: Anion Gap 10 mmol/L (10-20); BUN (Urea Nitrogen) 30 mg/dL (8.9-20.6); Calc. Creatinine Clearance 162 mL/min (70-130); Calcium 8.8 mg/dL (7.8-10.44); Carbon Dioxide 26 mmol/L (22-29); Chloride 112 mmol/L (98-107); Estimated GFR-MDRD Greater than 90; Glucose 150 mg/dL (70-105); Magnesium 2.4 mg/dL (1.6-2.6); Phosphorus 2.6 mg/dL (2.3-4.7); Potassium 4.2 mmol/L (3.5-5.1); Sodium 144 mmol/L (136-145)
[2020-01-29 04:32] LABS: Band 14 % (5-11); Eosinophils 1 % (0-10); Hemoglobin 10.7 g/dL (14.0-18.0); Lymphocytes 19 % (21-51); MDiff Complete? YES; Mean Corpuscular HGB CONC 33.2 g/dL (32.0-36.0); Mean Corpuscular Hemoglobin 33.4 pg (27.0-31.0); Mean Platelet Volume 9.6 fL (7.4-10.4); Monocytes 9 % (0-10); Myelocyte 2 % (0-0); Neutrophil 53 % (42-75); Platelet Count 157 thou/uL (130-400); Platelet Morphology Comment Appears Adequate; Polychromasia SLIGHT = 2-3 cells (100X) (0-2/hpf); RBC Distribution Width 11.7 % (11.5-14.5); Reactive Lymphocytes 2 % (0-10); Red Blood Cell (RBC) Count 3.22 mill/uL (4.70-6.10); White Blood Cell (WBC) Count 8.6 thou/uL (4.8-10.8)
[2020-01-29] MEDS: Cefepime 2 GM in Sodium Chloride 0.9% 100 ML IVPB SCH ×3 (05:00→21:31)
[2020-01-29] MEDS: traMADol HCl 50 MG TAB PO SCH ×3 (05:01→17:07)
--- NOTE | 2020-01-29 05:21 | PRG ---
DATE OF SERVICE: 01/29/2020 SUBJECTIVE: The patient remains in the critical care unit. He remains on full mechanical ventilatory support. Today, he underwent pacemaker placement. He tolerated that well. The nurse reports that his only issue this evening is he is having some significant anxiety that he has relayed to him and his significant other here at bedside. Upon my visit, he did nod his head that he was having anxious feelings, which are very understandable considering he is a C2 ventilator dependent quadriplegic, who just underwent pacemaker placement. Otherwise, the patient's vital signs are stable. He continues to have intermittent fevers, temperatures tonight reaching 102.7. The patient is on cooling blankets, fans, and antipyretics. PLAN: Plan will be to continue full supportive care and continue to work towards placement. Job ID: [id number]
[2020-01-29] MEDS ORDERED: Potassium Phosphate 15 MMOL in Sodium Chloride 0.9% 250 ML 250 ML IVPB SCH (08:15)
--- NOTE | 2020-01-29 09:04 | RAD ---
Exam: Chest one view HISTORY:Pneumonia Comparison: 01/28/2020 FINDINGS: Lines and tubes: Stable dual lead left-sided transvenous pacemaker. Leads terminate over the region of the right atrium and right ventricle. Stable tracheostomy. Cardiac silhouette: Normal Aorta: Unremarkable Pulmonary vessels: Normal Costophrenic angles: Bilateral pleural effusions LUNGS: Bibasilar lung parenchymal opacities due to aspiration, atelectasis or pneumonia. Pneumothorax: None Osseous abnormalities: None IMPRESSION: 1. Bibasilar pleural-parenchymal changes. 2. Left-sided transvenous pacemaker as detailed above.
[2020-01-29] MEDS: Micafungin 100 MG in Sodium Chloride 0.9% 100 ML IVPB SCH (09:40)
[2020-01-29] MEDS: Senokot S 8.6-50 MG TAB PER TUBE SCH ×2 (09:44→21:31)
[2020-01-29] MEDS: Enoxaparin Sodium 30 MG/0.3 ML SYRINGE SC SCH ×2 (09:44→21:30)
[2020-01-29] MEDS: Famotidine/PF 20 mg/2ml Vial SLOW IVP SCH ×2 (09:44→21:31)
[2020-01-29] MEDS: Saccharomyces boulardii 250 MG CAP PO SCH ×2 (09:44→21:30)
[2020-01-29] MEDS: HumaLOG 300 UNITS/3 ML VIAL SC PRN (09:55)
--- NOTE | 2020-01-29 13:38 | PRG ---
DATE OF SERVICE: 01/29/2020 SUBJECTIVE: Mr. Centeno's status is stable. He is doing well. He is status post pacemaker for sick sinus syndrome after recent spine injury. No current complaints. OBJECTIVE: VITAL SIGNS: Blood pressure 150/84, pulse 70, temperature afebrile. LUNGS: Clear to auscultation. HEART: Regular rate and rhythm. ABDOMEN: Soft, nontender, nondistended. EXTREMITIES: No edema. IMPRESSION: 1. Asystole likely related to spinal injury. 2. Status post pacemaker. RECOMMENDATIONS: Mr. Centeno is currently doing well. His followup chest x-ray appears stable with no pneumothorax. Otherwise, I have no further recommendations. Dr. Cyr to resume care on Friday. Job ID: [id number]
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
[2020-01-29] MEDS ORDERED: Artificial Tear Sol 15 ML BOT EA EYE PRN (17:57)
[2020-01-29] MEDS: Lorazepam 0.5 MG TAB PO PRN (21:30)
[2020-01-30] MEDS: traMADol HCl 50 MG TAB PO SCH ×4 (00:07→17:00)
--- NOTE | 2020-01-30 00:48 | PRG ---
DATE OF SERVICE: SUBJECTIVE: The patient remains on the critical care unit. He had no issues today. He continues to tolerate his diet. Pain is controlled. He reports that his anxiety was helped greatly with the Ativan prescribed last night. He also was able to get 4 good hours of sleep, which we hope to improve tonight with the addition of melatonin. I was called to bedside at his significant other's request with a concern of his trach tube. The nurse and I evaluated his tracheostomy tube. It was functioning properly. We suctioned it with little return. He was getting good volumes and his oxygen saturation was in the high 90s. The patient improved and it might have likely been his inability to cough. Just manipulation with the suction tube helped him. The patient has been afebrile today. PLAN: Will be to continue full supportive care and continue working on placement. Job ID: [id number]
[2020-01-30 01:19] LABS: Vancomycin, Trough 17.4 ug/mL
[2020-01-30] MEDS: Acetaminophen 650 MG/20.3 ML UDCUP PO SCH ×4 (02:53→20:50)
[2020-01-30] MEDS: Vancomycin HCl 1.75 GM in Sodium Chloride 0.9% 500 ML IVPB SCH ×3 (02:53→18:11)
[2020-01-30] MEDS: Lorazepam 0.5 MG TAB PO PRN ×2 (03:59→20:50)
[2020-01-30 04:22] LABS: Anion Gap 12 mmol/L (10-20); BUN (Urea Nitrogen) 31 mg/dL (8.9-20.6); Calc. Creatinine Clearance 187 mL/min (70-130); Calcium 8.6 mg/dL (7.8-10.44); Carbon Dioxide 27 mmol/L (22-29); Chloride 110 mmol/L (98-107); Estimated GFR-MDRD Greater than 90; Glucose 185 mg/dL (70-105); Magnesium 2.2 mg/dL (1.6-2.6); Phosphorus 3.2 mg/dL (2.3-4.7); Potassium 4.3 mmol/L (3.5-5.1); Sodium 145 mmol/L (136-145)
[2020-01-30 04:37] LABS: Band 16 % (5-11); Eosinophils 4 % (0-10); Hemoglobin 10.9 g/dL (14.0-18.0); Lymphocytes 16 % (21-51); MDiff Complete? YES; Mean Corpuscular HGB CONC 32.4 g/dL (32.0-36.0); Mean Corpuscular Hemoglobin 32.6 pg (27.0-31.0); Mean Platelet Volume 9.9 fL (7.4-10.4); Monocytes 5 % (0-10); Myelocyte 2 % (0-0); Neutrophil 57 % (42-75); Platelet Count 178 thou/uL (130-400); Platelet Morphology Comment Appears Adequate; Polychromasia SLIGHT = 2-3 cells (100X) (0-2/hpf); RBC Distribution Width 12.1 % (11.5-14.5); Red Blood Cell (RBC) Count 3.33 mill/uL (4.70-6.10); White Blood Cell (WBC) Count 8.6 thou/uL (4.8-10.8)
[2020-01-30] MEDS: Cefepime 2 GM in Sodium Chloride 0.9% 100 ML IVPB SCH ×3 (05:31→21:13)
[2020-01-30] MEDS ORDERED: Potassium Phosphate 15 MMOL in Sodium Chloride 0.9% 250 ML 250 ML IVPB SCH (07:30)
[2020-01-30] MEDS: Micafungin 100 MG in Sodium Chloride 0.9% 100 ML IVPB SCH (09:15)
[2020-01-30] MEDS: Senokot S 8.6-50 MG TAB PER TUBE SCH ×2 (09:42→20:51)
[2020-01-30] MEDS: Enoxaparin Sodium 30 MG/0.3 ML SYRINGE SC SCH ×2 (09:50→20:52)
[2020-01-30] MEDS: Famotidine/PF 20 mg/2ml Vial SLOW IVP SCH ×2 (09:55→20:51)
[2020-01-30] MEDS: Saccharomyces boulardii 250 MG CAP PO SCH ×2 (09:56→20:51)
[2020-01-30] MEDS: HumaLOG 300 UNITS/3 ML VIAL SC PRN (12:09)
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
[2020-01-30] MEDS: Melatonin 3 MG TAB PO SCH (20:51)
[2020-01-31] MEDS: traMADol HCl 50 MG TAB PO SCH ×4 (00:01→17:01)
--- NOTE | 2020-01-31 02:17 | PRG ---
DATE OF SERVICE: 01/30/2020 SUBJECTIVE: The patient was seen during evening rounds. Sleeping, resting comfortably. The patient's vital signs are stable and has been afebrile. The patient remains on full mechanical ventilatory support. The patient did have a pacemaker placed yesterday. PLAN: Continue tube feeds and free water flushes. Continue physical and occupational therapy. Continue ventilator via trach. The patient is pending discharge to LTAC facility. Job ID: [id number]
[2020-01-31] MEDS: Acetaminophen 650 MG/20.3 ML UDCUP PO SCH ×4 (02:43→20:34)
[2020-01-31] MEDS: Lorazepam 0.5 MG TAB PO PRN ×3 (02:48→22:12)
[2020-01-31] MEDS: Vancomycin HCl 1.75 GM in Sodium Chloride 0.9% 500 ML IVPB SCH ×3 (02:56→18:06)
[2020-01-31 04:46] LABS: Anion Gap 8 mmol/L (10-20); BUN (Urea Nitrogen) 24 mg/dL (8.9-20.6); Calc. Creatinine Clearance 193 mL/min (70-130); Calcium 8.6 mg/dL (7.8-10.44); Carbon Dioxide 28 mmol/L (22-29); Chloride 106 mmol/L (98-107); Estimated GFR-MDRD Greater than 90; Glucose 169 mg/dL (70-105); Magnesium 2.2 mg/dL (1.6-2.6); Phosphorus 3.6 mg/dL (2.3-4.7); Potassium 4.4 mmol/L (3.5-5.1); Sodium 138 mmol/L (136-145)
[2020-01-31 05:06] LABS: Band 11 % (5-11); Eosinophils 2 % (0-10); Hemoglobin 10.6 g/dL (14.0-18.0); Lymphocytes 13 % (21-51); MDiff Complete? YES; Mean Corpuscular HGB CONC 32.3 g/dL (32.0-36.0); Mean Corpuscular Hemoglobin 32.6 pg (27.0-31.0); Mean Platelet Volume 9.6 fL (7.4-10.4); Monocytes 6 % (0-10); Myelocyte 2 % (0-0); Neutrophil 66 % (42-75); Platelet Count 192 thou/uL (130-400); RBC Distribution Width 12.4 % (11.5-14.5); Red Blood Cell (RBC) Count 3.27 mill/uL (4.70-6.10); White Blood Cell (WBC) Count 8.4 thou/uL (4.8-10.8)
[2020-01-31] MEDS: Cefepime 2 GM in Sodium Chloride 0.9% 100 ML IVPB SCH ×3 (05:39→22:11)
[2020-01-31] MEDS: HumaLOG 300 UNITS/3 ML VIAL SC PRN (05:41)
--- NOTE | 2020-01-31 07:56 | RAD ---
XR Chest 1 View Portable History: Pneumonia Comparison: Radiograph 2 days prior Findings: Heart size is enlarged. Large bilateral effusions. No pneumothorax. No acute osseous abnormality. Dual-lead pacer electrodes project over the right atrium and right vent ricle. Impression: Similar examination the chest with likely redistribution of the pleural effusions from a subpulmonic to a layering posterior position.
[2020-01-31] MEDS ORDERED: Potassium Phosphate 15 MMOL in Sodium Chloride 0.9% 250 ML 250 ML IVPB SCH (09:00)
[2020-01-31] MEDS: Famotidine/PF 20 mg/2ml Vial SLOW IVP SCH ×2 (09:09→20:36)
[2020-01-31] MEDS: Senokot S 8.6-50 MG TAB PER TUBE SCH ×2 (09:09→20:23)
[2020-01-31] MEDS: Saccharomyces boulardii 250 MG CAP PO SCH ×2 (09:10→20:35)
[2020-01-31] MEDS: Enoxaparin Sodium 30 MG/0.3 ML SYRINGE SC SCH ×2 (09:10→20:35)
[2020-01-31] MEDS: Micafungin 100 MG in Sodium Chloride 0.9% 100 ML IVPB SCH (09:15)
[2020-01-31] MEDS ORDERED: Midazolam HCl 2 mg/2 ml Vial ONE (11:01)
[2020-01-31] MEDS ORDERED: Midazolam HCl 2 mg/2 ml Vial SLOW IVP SCH (11:45)
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
[2020-01-31] MEDS: Furosemide 20 MG/2 ML VIAL SLOW IVP SCH ×2 (12:39→20:35)
[2020-01-31] MEDS: Morphine 4 MG/ML VIAL SLOW IVP PRN (15:12)
--- NOTE | 2020-01-31 15:24 | PDOC.PALPN ---
Palliative Progress Note - Subjective Continues mechanical ventilation via trach. Able to communicate with eyes and nodding of his head, movement of mouth. Sister at bedside. In attempting to perform a review of symptoms patient denies any complaints. - Objective Vital Signs: Vital Signs - Most Recent Temp Pulse Resp BP Pulse Ox 100.6 F H 71 20 133/72 93 L 01/31/20 12:00 01/31/20 14:41 01/31/20 14:41 01/31/20 14:41 01/31/20 14:41 - Physical Exam Constitutional: NAD HEENT: EOMI, moist MMs, sclera anicteric Deviation from normal: Trach/mechanical ventilation Cardiovascular: RRR Gastrointestinal: continent, soft, incontinent Genitourinary: incontinent Musculoskeletal: edema present Deviation from normal: quadriplegia Skin: cap refill <2 seconds Psychiatric: A&O x 3 - Plan Plan: Hopeful for transition to LTAC in [place]. Discussed ALEJANDRA device that facilitates communication, speech generating device with eye tracking by patient. Information printed and shared. Resource offers assistance with funding for device. Mr Centeno was open to the concept and information. Will require a speech pathologist referral, but they are able to initiate the process. [employer] Sister communicated that family is still in shock, but adapting as best they can. Emotional Support. Consideration may be given to initiation of antidepressant [25] minutes spent on this encounter with >50% of the time in counseling and coordination of care.
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
--- NOTE | 2020-01-31 17:02 | EKG ---
Test Reason : Blood Pressure : / mmHG Vent. Rate : 084 BPM Atrial Rate : 084 BPM P-R Int : 140 ms QRS Dur : 084 ms QT Int : 320 ms P-R-T Axes : 046 071 021 degrees QTc Int : 378 ms Normal sinus rhythm low voltage No previous ECGs available Confirmed by DR. Kenny COFFMAN ([id number]) on 01/31/2020 5:02:23 PM Referred By: CLARI Confirmed By:DR. Kenny COFFMAN
[2020-01-31] MEDS: Melatonin 3 MG TAB PO SCH (20:35)
[2020-01-31] MEDS ORDERED: Senokot S 8.6-50 MG TAB PER TUBE PRN (20:55)
[2020-02-01] MEDS: Ibuprofen 100 MG/5 ML UDCUP PER TUBE PRN ×2 (00:12→06:00)
[2020-02-01] MEDS: traMADol HCl 50 MG TAB PO SCH ×4 (00:14→18:16)
--- NOTE | 2020-02-01 00:55 | PRG ---
DATE OF SERVICE: 01/31/2020 SUBJECTIVE: The patient was seen during evening rounds, sleeping in no distress. The patient remains on full mechanical ventilatory support. The patient's significant other is currently at bedside. The patient's nurse reports frequent loose bowel movements and they have been holding his stool softeners. OBJECTIVE: VITAL SIGNS: Stable. Temperature currently 100.9. Urinary output is adequate for the patient's age and weight. PLAN: Continue full mechanical ventilatory support. Continue supportive care. Continue pain regimen. We will unschedule the patient's stool softeners and only have them p.r.n. for constipation. The patient is ready for discharge to LTAC pending acceptance. Job ID: [id number]
[2020-02-01] MEDS: Vancomycin HCl 1.75 GM in Sodium Chloride 0.9% 500 ML IVPB SCH (02:29)
[2020-02-01] MEDS: Acetaminophen 650 MG/20.3 ML UDCUP PO SCH ×2 (03:47→09:28)
[2020-02-01] MEDS: Lorazepam 0.5 MG TAB PO PRN ×2 (03:48→20:36)
[2020-02-01] MEDS: Cefepime 2 GM in Sodium Chloride 0.9% 100 ML IVPB SCH (05:33)
[2020-02-01] MEDS: Furosemide 20 MG/2 ML VIAL SLOW IVP SCH ×3 (05:33→16:08)
[2020-02-01 05:49] LABS: #Eosinphils 0.3 thou/uL (0.0-0.7); #Lymphocytes 1.4 thou/uL (1.20-3.40); #Monocytes 0.8 thou/uL (0.11-0.59); #Neutrophils 5.8 thou/uL (1.40-6.50); %Basophils 0.4 % (0.0-1.0); %Eosinophils 3.9 % (0.0-10.0); %Monocytes 9.5 % (0.0-10.0); %Neutrophils 69.2 % (42.0-75.0); Hemoglobin 10.4 g/dL (14.0-18.0); Mean Corpuscular HGB CONC 32.5 g/dL (32.0-36.0); Mean Corpuscular Hemoglobin 32.9 pg (27.0-31.0); Mean Platelet Volume 9.3 fL (7.4-10.4); Platelet Count 211 thou/uL (130-400); RBC Distribution Width 12.4 % (11.5-14.5); Red Blood Cell (RBC) Count 3.17 mill/uL (4.70-6.10); White Blood Cell (WBC) Count 8.4 thou/uL (4.8-10.8)
[2020-02-01 06:58] LABS: Anion Gap 8 mmol/L (10-20); BUN (Urea Nitrogen) 27 mg/dL (8.9-20.6); Calc. Creatinine Clearance 172 mL/min (70-130); Calcium 8.6 mg/dL (7.8-10.44); Carbon Dioxide 28 mmol/L (22-29); Chloride 101 mmol/L (98-107); Estimated GFR-MDRD Greater than 90; Glucose 170 mg/dL (70-105); Magnesium 2.4 mg/dL (1.6-2.6); Phosphorus 3.4 mg/dL (2.3-4.7); Potassium 4.2 mmol/L (3.5-5.1); Sodium 133 mmol/L (136-145)
--- NOTE | 2020-02-01 07:25 | RAD ---
CHEST 1 VIEW: INDICATION: Followup pneumonia. COMPARISON: Prior exam dated 01/31/2020. IMPRESSION: Bilateral airspace disease is stable. Dual-lead pacemaker and tracheostomy tube is unchanged. No pn eumothorax is evident. Small bilateral pleural effusions persist. POS: BH
[2020-02-01] MEDS: Famotidine/PF 20 mg/2ml Vial SLOW IVP SCH (09:28)
[2020-02-01] MEDS: Saccharomyces boulardii 250 MG CAP PO SCH ×2 (09:28→20:36)
[2020-02-01] MEDS: Enoxaparin Sodium 30 MG/0.3 ML SYRINGE SC SCH ×2 (09:29→20:36)
[2020-02-01] MEDS: HumaLOG 300 UNITS/3 ML VIAL SC PRN ×2 (09:45→20:37)
[2020-02-01] MEDS: Micafungin 100 MG in Sodium Chloride 0.9% 100 ML IVPB SCH (10:28)
[2020-02-01] MEDS: Acetaminophen 500 MG TAB PER TUBE SCH ×2 (15:03→20:36)
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
[2020-02-01] MEDS: Melatonin 3 MG TAB PO SCH (20:36)
[2020-02-01] MEDS: Famotidine 20 MG TAB PO SCH (20:36)
[2020-02-01] MEDS: Morphine 4 MG/ML VIAL SLOW IVP PRN (21:05)
[2020-02-02] MEDS: traMADol HCl 50 MG TAB PO SCH ×4 (00:16→18:09)
[2020-02-02] MEDS: Lorazepam 0.5 MG TAB PO PRN ×5 (00:17→21:06)
[2020-02-02] MEDS: Furosemide 20 MG/2 ML VIAL SLOW IVP SCH ×2 (00:17→17:04)
[2020-02-02] MEDS: Acetaminophen 500 MG TAB PER TUBE SCH ×4 (04:08→21:06)
[2020-02-02 07:03] LABS: Actual Bicarbonate (HCO3a) 28.9 mEq/L (22-28); Base Excess (BEa) 5.3 mEq/L (-2.0 to +3.0); CO2 Tension 38.9 mmHg (35.0-45.0); Calcium, Ionized (arterial) 1.17 mmol/L (1.12-1.30); Carboxyhemoglobin (COHb) 0.2 gm% (0.0-3.0); Hemoglobin (Hb) 12.7 g/dL (14.0-18.0); O2 Tension (PaO2), arterial 84.6 mmHg (80.0-100.0); Potassium - ABG Lab 4.53 mmol/L (3.70-5.30); pH, Arterial 7.49 (7.35-7.45)
[2020-02-02 07:08] LABS: Puncture Site RA
[2020-02-02 07:09] LABS: ALV-art Gradient 151.975 (0-20)
[2020-02-02] MEDS: Enoxaparin Sodium 30 MG/0.3 ML SYRINGE SC SCH ×2 (08:08→21:06)
[2020-02-02] MEDS: Famotidine 20 MG TAB PO SCH ×2 (08:08→21:05)
[2020-02-02] MEDS: Saccharomyces boulardii 250 MG CAP PO SCH ×2 (08:08→21:06)
[2020-02-02] MEDS: Micafungin 100 MG in Sodium Chloride 0.9% 100 ML IVPB SCH (09:10)
[2020-02-02] MEDS: HumaLOG 300 UNITS/3 ML VIAL SC PRN (09:11)
[2020-02-02] MEDS: Cefepime 2 GM in Sodium Chloride 0.9% 100 ML IVPB SCH ×2 (10:28→17:04)
[2020-02-02] MEDS: Morphine 4 MG/ML VIAL SLOW IVP PRN ×2 (10:28→17:05)
[2020-02-02] MEDS: Gabapentin 300 MG CAP PO SCH ×3 (10:28→21:06)
[2020-02-02] MEDS: traMADol HCl 50 MG TAB PO PRN (14:51)
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
[2020-02-02] MEDS: Melatonin 3 MG TAB PO SCH (21:06)
[2020-02-03] MEDS ORDERED: Clopidogrel Bisulfate 75 MG TAB ONE (00:14)
[2020-02-03] MEDS: Cefepime 2 GM in Sodium Chloride 0.9% 100 ML IVPB SCH ×3 (00:17→17:33)
[2020-02-03] MEDS: Furosemide 20 MG/2 ML VIAL SLOW IVP SCH ×2 (00:18→09:24)
[2020-02-03] MEDS: traMADol HCl 50 MG TAB PO SCH ×4 (00:18→17:38)
[2020-02-03] MEDS: Acetaminophen 500 MG TAB PER TUBE SCH ×4 (02:12→22:06)
[2020-02-03] MEDS: Lorazepam 0.5 MG TAB PO PRN (02:12)
[2020-02-03] MEDS: Morphine 4 MG/ML VIAL SLOW IVP PRN (03:36)
[2020-02-03] MEDS: Ibuprofen 100 MG/5 ML UDCUP PER TUBE PRN ×2 (04:14→12:48)
[2020-02-03 07:34] LABS: #Eosinphils 0.2 thou/uL (0.0-0.7); #Lymphocytes 1.3 thou/uL (1.20-3.40); #Monocytes 0.8 thou/uL (0.11-0.59); #Neutrophils 9.9 thou/uL (1.40-6.50); %Basophils 0.3 % (0.0-1.0); %Eosinophils 1.5 % (0.0-10.0); %Lymphocytes 10.8 % (21.0-51.0); %Monocytes 6.7 % (0.0-10.0); %Neutrophils 80.7 % (42.0-75.0); Mean Corpuscular Hemoglobin 33.2 pg (27.0-31.0); Mean Platelet Volume 9.3 fL (7.4-10.4); Platelet Count 243 thou/uL (130-400); RBC Distribution Width 12.5 % (11.5-14.5); Red Blood Cell (RBC) Count 3.32 mill/uL (4.70-6.10); White Blood Cell (WBC) Count 12.2 thou/uL (4.8-10.8)
[2020-02-03 07:49] LABS: Anion Gap 13 mmol/L (10-20); BUN (Urea Nitrogen) 34 mg/dL (8.9-20.6); Calc. Creatinine Clearance 158 mL/min (70-130); Carbon Dioxide 30 mmol/L (22-29); Chloride 99 mmol/L (98-107); Estimated GFR-MDRD Greater than 90; Glucose 157 mg/dL (70-105); Magnesium 2.5 mg/dL (1.6-2.6); Phosphorus 3.2 mg/dL (2.3-4.7); Potassium 4.7 mmol/L (3.5-5.1); Sodium 137 mmol/L (136-145)
--- NOTE | 2020-02-03 08:02 | RAD ---
EXAM: Single view of the chest HISTORY: Respiratory failure COMPARISON: 02/01/2020 FINDINGS: Single view of the chest shows a normal sized cardiomediastinal silhouette. The pacemaker and tracheostomy are unchanged in position. There is a veil like opacity in the left thorax which likely represents a small layering pleural effusion. No acute osseous abnormality. IMPRESSION: Small left pleural effusion
[2020-02-03] MEDS: Enoxaparin Sodium 30 MG/0.3 ML SYRINGE SC SCH ×2 (08:45→22:07)
[2020-02-03] MEDS: Saccharomyces boulardii 250 MG CAP PO SCH ×2 (08:46→22:07)
[2020-02-03] MEDS: Gabapentin 300 MG CAP PO SCH ×3 (08:46→22:06)
[2020-02-03] MEDS: Famotidine 20 MG TAB PO SCH ×2 (08:46→22:06)
[2020-02-03] MEDS ORDERED: Tobramycin Sulfate 0.3 GM in Sodium Chloride 0.9% 7.5 ML NEB SCH (10:00)
[2020-02-03] MEDS: Micafungin 100 MG in Sodium Chloride 0.9% 100 ML IVPB SCH (10:14)
--- NOTE | 2020-02-03 15:32 | EKG ---
Test Reason : Blood Pressure : / mmHG Vent. Rate : 062 BPM Atrial Rate : 062 BPM P-R Int : 192 ms QRS Dur : 102 ms QT Int : 422 ms P-R-T Axes : 113 059 115 degrees QTc Int : 428 ms Normal sinus rhythm Normal ECG Confirmed by OMAR WINTER ([id number]), associate entertainment editor RAYMOND LUNDBERG ([id number]) on 02/03/2020 3:31:20 PM Referred By: Confirmed By:OMAR WINTER
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
[2020-02-03] MEDS: Melatonin 3 MG TAB PO SCH (22:06)
[2020-02-03] MEDS: Tobramycin Sulfate 0.3 GM in Sodium Chloride 0.9% 7.5 ML NEB SCH (22:20)
[2020-02-04] MEDS: Cefepime 2 GM in Sodium Chloride 0.9% 100 ML IVPB SCH ×3 (00:59→16:51)
[2020-02-04] MEDS: traMADol HCl 50 MG TAB PO SCH ×5 (01:00→23:07)
[2020-02-04] MEDS: Tobramycin Sulfate 0.3 GM in Sodium Chloride 0.9% 7.5 ML NEB SCH ×3 (01:33→19:47)
[2020-02-04] MEDS: Acetaminophen 650 MG/20.3 ML UDCUP PER TUBE SCH ×4 (04:17→21:09)
[2020-02-04 07:22] LABS: #Basophils 0.1 thou/uL (0.0-0.2); #Eosinphils 0.2 thou/uL (0.0-0.7); #Lymphocytes 1.2 thou/uL (1.20-3.40); #Monocytes 0.9 thou/uL (0.11-0.59); #Neutrophils 9.6 thou/uL (1.40-6.50); %Basophils 0.5 % (0.0-1.0); %Eosinophils 1.5 % (0.0-10.0); %Lymphocytes 10.4 % (21.0-51.0); %Monocytes 7.7 % (0.0-10.0); Hemoglobin 11.8 g/dL (14.0-18.0); Mean Corpuscular HGB CONC 32.8 g/dL (32.0-36.0); Mean Corpuscular Hemoglobin 33.2 pg (27.0-31.0); Mean Platelet Volume 8.4 fL (7.4-10.4); Platelet Count 233 thou/uL (130-400); RBC Distribution Width 12.5 % (11.5-14.5); Red Blood Cell (RBC) Count 3.55 mill/uL (4.70-6.10)
[2020-02-04 07:51] LABS: Anion Gap 12 mmol/L (10-20); BUN (Urea Nitrogen) 34 mg/dL (8.9-20.6); Calc. Creatinine Clearance 182 mL/min (70-130); Calcium 9.3 mg/dL (7.8-10.44); Carbon Dioxide 31 mmol/L (22-29); Chloride 100 mmol/L (98-107); Estimated GFR-MDRD Greater than 90; Glucose 152 mg/dL (70-105); Magnesium 2.5 mg/dL (1.6-2.6); Phosphorus 4.5 mg/dL (2.3-4.7); Potassium 4.6 mmol/L (3.5-5.1); Sodium 138 mmol/L (136-145)
[2020-02-04] MEDS: Saccharomyces boulardii 250 MG CAP PO SCH ×2 (09:26→21:09)
[2020-02-04] MEDS: Enoxaparin Sodium 30 MG/0.3 ML SYRINGE SC SCH ×2 (09:26→21:09)
[2020-02-04] MEDS: Gabapentin 300 MG CAP PO SCH ×3 (09:27→21:09)
[2020-02-04] MEDS: traMADol HCl 50 MG TAB PO PRN (09:27)
[2020-02-04] MEDS: Famotidine 20 MG TAB PO SCH ×2 (09:27→21:09)
[2020-02-04] MEDS: Lorazepam 0.5 MG TAB PO PRN ×3 (09:28→21:11)
[2020-02-04] MEDS: Escitalopram Oxalate 10 mg Tablet PO SCH (09:28)
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
[2020-02-04] MEDS: Melatonin 3 MG TAB PO SCH (21:09)
[2020-02-04] MEDS: Oxymetazoline HCl 0.05% (30 ML BOT) NS SCH (23:06)
[2020-02-05] MEDS: Cefepime 2 GM in Sodium Chloride 0.9% 100 ML IVPB SCH ×3 (00:05→16:51)
[2020-02-05] MEDS: Lorazepam 0.5 MG TAB PO PRN ×3 (02:50→17:40)
[2020-02-05] MEDS: Acetaminophen 650 MG/20.3 ML UDCUP PER TUBE SCH ×4 (02:50→20:32)
[2020-02-05] MEDS: traMADol HCl 50 MG TAB PO SCH ×3 (05:18→17:51)
[2020-02-05] MEDS: Oxymetazoline HCl 0.05% (30 ML BOT) NS SCH ×3 (07:07→17:53)
[2020-02-05] MEDS: Tobramycin Sulfate 0.3 GM in Sodium Chloride 0.9% 7.5 ML NEB SCH ×2 (07:16→20:17)
[2020-02-05] MEDS: Gabapentin 300 MG CAP PO SCH ×3 (08:54→20:32)
[2020-02-05] MEDS: Saccharomyces boulardii 250 MG CAP PO SCH ×2 (08:54→20:32)
[2020-02-05] MEDS: Escitalopram Oxalate 10 mg Tablet PO SCH (08:54)
[2020-02-05] MEDS: Enoxaparin Sodium 30 MG/0.3 ML SYRINGE SC SCH ×2 (08:54→20:32)
[2020-02-05] MEDS: Famotidine 20 MG TAB PO SCH ×2 (08:54→20:32)
[2020-02-05] MEDS: HumaLOG 300 UNITS/3 ML VIAL SC PRN (09:08)
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
[2020-02-05] MEDS: Melatonin 3 MG TAB PO SCH (20:32)
[2020-02-05] MEDS: Ibuprofen 100 MG/5 ML UDCUP PER TUBE PRN (20:32)
[2020-02-06] MEDS: traMADol HCl 50 MG TAB PO SCH ×4 (00:56→18:21)
[2020-02-06] MEDS: Cefepime 2 GM in Sodium Chloride 0.9% 100 ML IVPB SCH ×3 (00:56→17:47)
[2020-02-06] MEDS: Oxymetazoline HCl 0.05% (30 ML BOT) NS SCH ×4 (00:56→17:48)
[2020-02-06] MEDS: Acetaminophen 650 MG/20.3 ML UDCUP PER TUBE SCH ×4 (03:38→20:01)
[2020-02-06] MEDS: Tobramycin Sulfate 0.3 GM in Sodium Chloride 0.9% 7.5 ML NEB SCH ×2 (07:26→18:58)
[2020-02-06] MEDS: Enoxaparin Sodium 30 MG/0.3 ML SYRINGE SC SCH ×2 (09:40→20:00)
[2020-02-06] MEDS: Escitalopram Oxalate 10 mg Tablet PO SCH (09:40)
[2020-02-06] MEDS: Famotidine 20 MG TAB PO SCH ×2 (09:40→20:01)
[2020-02-06] MEDS: Gabapentin 300 MG CAP PO SCH ×3 (09:41→20:01)
[2020-02-06] MEDS: Saccharomyces boulardii 250 MG CAP PO SCH ×2 (09:42→20:01)
[2020-02-06] MEDS: Lorazepam 0.5 MG TAB PO PRN (09:53)
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
[2020-02-06] MEDS: Ibuprofen 100 MG/5 ML UDCUP PER TUBE PRN (13:13)
[2020-02-06] MEDS: Melatonin 3 MG TAB PO SCH (20:01)
[2020-02-06] MEDS: traMADol HCl 50 MG TAB PO PRN (22:13)
[2020-02-07] MEDS: Oxymetazoline HCl 0.05% (30 ML BOT) NS SCH (01:12)
[2020-02-07] MEDS: traMADol HCl 50 MG TAB PO SCH (01:12)
[2020-02-07] MEDS: Cefepime 2 GM in Sodium Chloride 0.9% 100 ML IVPB SCH ×3 (01:36→16:40)
[2020-02-07] MEDS: Acetaminophen 650 MG/20.3 ML UDCUP PER TUBE SCH ×4 (03:59→21:04)
[2020-02-07] MEDS: traMADol HCl 50 MG TAB PO PRN ×3 (06:18→21:07)
[2020-02-07 06:35] LABS: #Basophils 0.1 thou/uL (0.0-0.2); #Eosinphils 0.1 thou/uL (0.0-0.7); #Lymphocytes 1.1 thou/uL (1.20-3.40); #Monocytes 0.7 thou/uL (0.11-0.59); #Neutrophils 7.3 thou/uL (1.40-6.50); %Basophils 0.5 % (0.0-1.0); %Eosinophils 1.4 % (0.0-10.0); %Lymphocytes 11.7 % (21.0-51.0); %Monocytes 7.6 % (0.0-10.0); %Neutrophils 78.8 % (42.0-75.0); Hemoglobin 11.1 g/dL (14.0-18.0); Mean Corpuscular Hemoglobin 33.3 pg (27.0-31.0); Mean Platelet Volume 9.6 fL (7.4-10.4); Platelet Count 190 thou/uL (130-400); RBC Distribution Width 12.1 % (11.5-14.5); Red Blood Cell (RBC) Count 3.34 mill/uL (4.70-6.10); White Blood Cell (WBC) Count 9.2 thou/uL (4.8-10.8)
[2020-02-07 06:44] LABS: Anion Gap 13 mmol/L (10-20); BUN (Urea Nitrogen) 29 mg/dL (8.9-20.6); Calc. Creatinine Clearance 202 mL/min (70-130); Carbon Dioxide 25 mmol/L (22-29); Chloride 103 mmol/L (98-107); Estimated GFR-MDRD Greater than 90; Glucose 152 mg/dL (70-105); Magnesium 2.2 mg/dL (1.6-2.6); Phosphorus 3.5 mg/dL (2.3-4.7); Potassium 3.9 mmol/L (3.5-5.1); Sodium 137 mmol/L (136-145)
[2020-02-07] MEDS: Saccharomyces boulardii 250 MG CAP PO SCH ×2 (08:59→21:04)
[2020-02-07] MEDS: Gabapentin 300 MG CAP PO SCH ×3 (09:00→21:04)
[2020-02-07] MEDS: Enoxaparin Sodium 30 MG/0.3 ML SYRINGE SC SCH ×2 (09:00→21:04)
[2020-02-07] MEDS: Escitalopram Oxalate 10 mg Tablet PO SCH (09:00)
[2020-02-07] MEDS: Famotidine 20 MG TAB PO SCH ×2 (09:00→21:04)
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
[2020-02-07] MEDS: Ibuprofen 100 MG/5 ML UDCUP PER TUBE PRN (16:47)
[2020-02-07] MEDS: Tobramycin Sulfate 0.3 GM in Sodium Chloride 0.9% 7.5 ML NEB SCH ×2 (18:27→19:16)
[2020-02-07] MEDS: Melatonin 3 MG TAB PO SCH (21:04)
[2020-02-08] MEDS: Cefepime 2 GM in Sodium Chloride 0.9% 100 ML IVPB SCH ×3 (00:13→17:15)
[2020-02-08] MEDS: Ibuprofen 100 MG/5 ML UDCUP PER TUBE PRN (01:08)
[2020-02-08] MEDS: Acetaminophen 650 MG/20.3 ML UDCUP PER TUBE SCH ×4 (03:58→20:26)
[2020-02-08 04:39] LABS: Bacteria/HPF None Seen HPF (None Seen); Bilirubin Negative (Negative); Blood, Urine Negative (Negative); Clarity Clear (Clear); Glucose, Urine (Dipstick) Normal (Negative); Ketone, Urine Trace mg/dL (Negative); Leukocyte Negative Leu/uL (Negative); Nitrite Negative (Negative); Protein, Urine (Dipstick) 30 mg/dL (Neg-Trace); RBC/HPF 0-3 HPF (0-3); Specific Gravity, Urine 1.042 (1.002-1.036); Squamous Epithelial None Seen HPF (0-3); Urobilinogen Normal mg/dL (Less than 2); WBC/HPF 0-3 HPF (0-3); pH, Urine 5.5 (5.0-9.0)
[2020-02-08] MEDS: Tobramycin Sulfate 0.3 GM in Sodium Chloride 0.9% 7.5 ML NEB SCH ×2 (07:34→21:54)
[2020-02-08] MEDS: traMADol HCl 50 MG TAB PO PRN ×3 (08:16→20:26)
[2020-02-08] MEDS: Saccharomyces boulardii 250 MG CAP PO SCH ×2 (08:17→20:27)
[2020-02-08] MEDS: Gabapentin 300 MG CAP PO SCH ×3 (08:17→20:27)
[2020-02-08] MEDS: Escitalopram Oxalate 10 mg Tablet PO SCH (08:17)
[2020-02-08] MEDS: Famotidine 20 MG TAB PO SCH ×2 (08:17→20:26)
[2020-02-08] MEDS: Enoxaparin Sodium 30 MG/0.3 ML SYRINGE SC SCH ×2 (08:18→20:27)
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
[2020-02-08] MEDS: Melatonin 3 MG TAB PO SCH (20:27)
--- NOTE | 2020-02-08 23:54 | PRG ---
DATE OF SERVICE: 02/08/2020 SUBJECTIVE: The patient was seen during evening rounds, sleeping on full mechanical ventilatory support. The patient had his tracheostomy downsized earlier today, allowing him to speak well on ventilator with short phrases. The patient's vital signs have been stable, temperature at 101.0. Urinary output has been adequate for patient's age and weight. PLAN: Continue mechanical ventilatory support. Increase activity per Physical and Occupational Therapy as tolerated. Continue cooling measures. Job ID: [id number] MTDD
[2020-02-09] MEDS: Cefepime 2 GM in Sodium Chloride 0.9% 100 ML IVPB SCH (00:17)
[2020-02-09] MEDS: Acetaminophen 650 MG/20.3 ML UDCUP PER TUBE SCH ×4 (03:10→20:34)
[2020-02-09] MEDS: traMADol HCl 50 MG TAB PO PRN (03:19)
[2020-02-09] MEDS: Tobramycin Sulfate 0.3 GM in Sodium Chloride 0.9% 7.5 ML NEB SCH ×2 (07:36→18:33)
[2020-02-09] MEDS ORDERED: traMADol HCl 50 MG TAB PO PRN (09:02)
[2020-02-09] MEDS: Enoxaparin Sodium 30 MG/0.3 ML SYRINGE SC SCH ×2 (09:19→20:35)
[2020-02-09] MEDS: Famotidine 20 MG TAB PO SCH ×2 (09:20→20:35)
[2020-02-09] MEDS: Saccharomyces boulardii 250 MG CAP PO SCH ×2 (09:20→20:35)
[2020-02-09] MEDS: Escitalopram Oxalate 10 mg Tablet PO SCH (09:20)
[2020-02-09] MEDS: Gabapentin 300 MG CAP PO SCH ×3 (09:20→20:35)
[2020-02-09] MEDS: traMADol HCl 50 MG TAB PO SCH ×3 (09:21→20:36)
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
[2020-02-09] MEDS: Melatonin 3 MG TAB PO SCH (20:35)
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
[2020-02-10] MEDS: Acetaminophen 650 MG/20.3 ML UDCUP PER TUBE SCH ×4 (03:04→20:49)
[2020-02-10] MEDS: traMADol HCl 50 MG TAB PO SCH ×4 (03:04→20:51)
[2020-02-10 04:31] LABS: Anion Gap 12 mmol/L (10-20); BUN (Urea Nitrogen) 26 mg/dL (8.9-20.6); Calc. Creatinine Clearance 222 mL/min (70-130); Calcium 9.4 mg/dL (7.8-10.44); Carbon Dioxide 27 mmol/L (22-29); Chloride 101 mmol/L (98-107); Estimated GFR-MDRD Greater than 90; Glucose 133 mg/dL (70-105); Magnesium 2.3 mg/dL (1.6-2.6); Phosphorus 3.3 mg/dL (2.3-4.7); Potassium 4.1 mmol/L (3.5-5.1); Sodium 136 mmol/L (136-145)
[2020-02-10 04:43] LABS: Band 12 % (5-11); Hemoglobin 10.9 g/dL (14.0-18.0); Lymphocytes 23 % (21-51); MDiff Complete? YES; Mean Corpuscular HGB CONC 32.6 g/dL (32.0-36.0); Mean Corpuscular Hemoglobin 32.9 pg (27.0-31.0); Mean Platelet Volume 9.7 fL (7.4-10.4); Metamyelocyte 1 % (0-0); Monocytes 4 % (0-10); Neutrophil 60 % (42-75); Platelet Count 167 thou/uL (130-400); Platelet Morphology Comment Appears Adequate; RBC Distribution Width 12.1 % (11.5-14.5); Red Blood Cell (RBC) Count 3.32 mill/uL (4.70-6.10)
[2020-02-10] MEDS: Tobramycin Sulfate 0.3 GM in Sodium Chloride 0.9% 7.5 ML NEB SCH (07:52)
[2020-02-10] MEDS ORDERED: Sodium Phosphate 30 MMOL in Sodium Chloride 0.9% 250 ML 250 ML IVPB SCH (08:00)
[2020-02-10] MEDS: Enoxaparin Sodium 30 MG/0.3 ML SYRINGE SC SCH ×2 (09:05→20:49)
[2020-02-10] MEDS: Escitalopram Oxalate 10 mg Tablet PO SCH (09:06)
[2020-02-10] MEDS: Famotidine 20 MG TAB PO SCH ×2 (09:06→20:50)
[2020-02-10] MEDS: Saccharomyces boulardii 250 MG CAP PO SCH ×2 (09:06→20:52)
[2020-02-10] MEDS: Gabapentin 300 MG CAP PO SCH ×3 (09:06→20:52)
--- NOTE | 2020-02-10 09:28 | RAD ---
PORTABLE CHEST: HISTORY: Pneumonia followup. COMPARISON: 02/03/2020 exam. FINDINGS: Heart size is within normal limits. A pacemaker is present. The left-sided pleural and parenchymal lung changes have largely resolved. There are now right lower lobe infiltrative-appearing lung adame es seen. IMPRESSION: Right lower lobe parenchymal lung changes have developed since the prior exam suggestive of infiltrat e. There has been a definite improvement to the left lower lobe parenchymal changes. POS: [facility]
[2020-02-10] MEDS ORDERED: Morphine 4 MG/ML VIAL ONE (10:31)
[2020-02-10] MEDS ORDERED: Morphine 4 MG/ML VIAL SLOW IVP SCH (10:45)
[2020-02-10] MEDS ORDERED: Midazolam HCl 2 mg/2 ml Vial SLOW IVP SCH (10:45)
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
[2020-02-10] MEDS: Ibuprofen 100 MG/5 ML UDCUP PER TUBE PRN (13:21)
[2020-02-10] MEDS: Melatonin 3 MG TAB PO SCH (20:50)
[2020-02-11] MEDS: Ibuprofen 100 MG/5 ML UDCUP PER TUBE PRN ×2 (01:12→12:45)
[2020-02-11] MEDS: traMADol HCl 50 MG TAB PO SCH ×4 (04:23→20:18)
[2020-02-11] MEDS: Acetaminophen 650 MG/20.3 ML UDCUP PER TUBE SCH ×4 (04:24→20:17)
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
[2020-02-11] MEDS: Tobramycin Sulfate 0.3 GM in Sodium Chloride 0.9% 7.5 ML NEB SCH ×3 (06:23→20:22)
[2020-02-11] MEDS: Saccharomyces boulardii 250 MG CAP PO SCH ×2 (08:18→20:18)
[2020-02-11] MEDS: Enoxaparin Sodium 30 MG/0.3 ML SYRINGE SC SCH ×2 (08:18→20:18)
[2020-02-11] MEDS: Famotidine 20 MG TAB PO SCH ×2 (08:18→20:18)
[2020-02-11] MEDS: Gabapentin 300 MG CAP PO SCH ×3 (08:18→20:33)
[2020-02-11] MEDS: Escitalopram Oxalate 10 mg Tablet PO SCH (08:19)
--- NOTE | 2020-02-11 09:30 | RAD ---
CHEST 1 VIEW PORTABLE: HISTORY: Followup pneumonia. COMPARISON: 02/10/2020. FINDINGS: Left ICD and tracheostomy tube in place. Patchy mild pleural and parenchymal opacity changes bilater ally. Slightly more prominent in the left chest but improved in the right base compared to most rece nt prior study. No significant new process. Continue short-term followup. POS: [facility]
[2020-02-11 10:35] LABS: ALT (SGPT) 151 U/L (8-55); AST (SGOT) 52 U/L (5-34); Albumin 3.8 g/dL (3.5-5.0); Alkaline Phosphatase 69 U/L (40-110); Bilirubin, Direct 0.2 mg/dL (0.1-0.3); Bilirubin, Total 0.5 mg/dL (0.2-1.2); CRP (Inflammatory) Less than 0.50 mg/dL (= or < 0.5); Protein, Total 6.8 g/dL (6.0-8.3)
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
[2020-02-11] MEDS: Melatonin 3 MG TAB PO SCH (20:18)
[2020-02-12] MEDS: Acetaminophen 650 MG/20.3 ML UDCUP PER TUBE SCH ×4 (02:03→20:09)
[2020-02-12] MEDS: traMADol HCl 50 MG TAB PO SCH ×4 (02:03→20:09)
[2020-02-12 04:47] LABS: Band 4 % (5-11); Eosinophils 1 % (0-10); Hemoglobin 10.8 g/dL (14.0-18.0); Lymphocytes 19 % (21-51); MDiff Complete? YES; Mean Corpuscular HGB CONC 32.2 g/dL (32.0-36.0); Mean Corpuscular Hemoglobin 32.6 pg (27.0-31.0); Monocytes 5 % (0-10); Neutrophil 71 % (42-75); Platelet Count 180 thou/uL (130-400); Red Blood Cell (RBC) Count 3.31 mill/uL (4.70-6.10); White Blood Cell (WBC) Count 6.6 thou/uL (4.8-10.8)
[2020-02-12 04:57] LABS: Anion Gap 14 mmol/L (10-20); BUN (Urea Nitrogen) 26 mg/dL (8.9-20.6); Calc. Creatinine Clearance 218 mL/min (70-130); Calcium 9.5 mg/dL (7.8-10.44); Carbon Dioxide 26 mmol/L (22-29); Chloride 101 mmol/L (98-107); Estimated GFR-MDRD Greater than 90; Glucose 126 mg/dL (70-105); Magnesium 2.3 mg/dL (1.6-2.6); Phosphorus 3.6 mg/dL (2.3-4.7); Potassium 4.4 mmol/L (3.5-5.1); Sodium 137 mmol/L (136-145)
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
[2020-02-12] MEDS: Ibuprofen 100 MG/5 ML UDCUP PER TUBE PRN (06:25)
[2020-02-12] MEDS: Tobramycin Sulfate 0.3 GM in Sodium Chloride 0.9% 7.5 ML NEB SCH ×2 (07:30→19:13)
[2020-02-12] MEDS: Saccharomyces boulardii 250 MG CAP PO SCH ×2 (08:40→20:09)
[2020-02-12] MEDS: Gabapentin 300 MG CAP PO SCH ×3 (08:40→20:09)
[2020-02-12] MEDS: Escitalopram Oxalate 10 mg Tablet PO SCH (08:40)
[2020-02-12] MEDS: Enoxaparin Sodium 30 MG/0.3 ML SYRINGE SC SCH ×2 (08:40→20:11)
[2020-02-12] MEDS: Famotidine 20 MG TAB PO SCH ×2 (08:41→20:09)
--- NOTE | 2020-02-12 10:34 | RAD ---
PORTABLE CHEST: Date: 02/12/2020 HISTORY: Pneumonia follow-up. COMPARISON: 02/11/2020. FINDINGS/IMPRESSION: There are hazy infiltrates seen in both mid and lower lung candelaria. Pacemaker lead unchanged. Tracheos chuck device again noted. No acute interval change from yesterday. POS: AGW
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
[2020-02-12] MEDS: Melatonin 3 MG TAB PO SCH (20:09)
[2020-02-13] MEDS: Ibuprofen 100 MG/5 ML UDCUP PER TUBE PRN ×3 (00:02→23:22)
[2020-02-13] MEDS: Acetaminophen 650 MG/20.3 ML UDCUP PER TUBE SCH ×4 (02:15→20:53)
[2020-02-13] MEDS: traMADol HCl 50 MG TAB PO SCH ×4 (02:16→23:22)
[2020-02-13] MEDS: Saccharomyces boulardii 250 MG CAP PO SCH ×2 (09:18→20:50)
[2020-02-13] MEDS: Enoxaparin Sodium 30 MG/0.3 ML SYRINGE SC SCH ×2 (09:18→20:53)
[2020-02-13] MEDS: Gabapentin 300 MG CAP PO SCH ×3 (09:18→20:54)
[2020-02-13] MEDS: Escitalopram Oxalate 10 mg Tablet PO SCH (09:18)
[2020-02-13] MEDS: Famotidine 20 MG TAB PO SCH ×2 (09:18→20:45)
--- NOTE | 2020-02-13 11:23 | RAD ---
PORTABLE CHEST: HISTORY: Pneumonia. COMPARISON: 02/12/20 FINDINGS: Tracheostomy tube again noted. Hazy bibasilar infiltrates. Upper lung candelaria appear clear. No signifi cant interval change apparent. POS: AGW
[2020-02-13] MEDS: Tobramycin Sulfate 0.3 GM in Sodium Chloride 0.9% 7.5 ML NEB SCH (18:12)
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
[2020-02-13] MEDS: Melatonin 3 MG TAB PO SCH (20:54)
--- NOTE | 2020-02-14 00:06 | PRG ---
DATE OF SERVICE: 02/13/2020 SUBJECTIVE: The patient was seen during evening rounds, resting comfortably on full ventilatory support. The patient continues to have a fever, which was max 103.2 this morning. Vital signs are stable. Urinary output is adequate for the patient's age and weight. PLAN: Continue supportive care and pain regimen. Continue current tube feeds. Continue physical and occupational therapy. The patient is pending placement to a neuro rehab facility. Job ID: [id number]
[2020-02-14] MEDS: Acetaminophen 650 MG/20.3 ML UDCUP PER TUBE SCH ×4 (04:09→21:21)
[2020-02-14] MEDS: traMADol HCl 50 MG TAB PO SCH ×4 (04:09→21:22)
[2020-02-14 06:26] LABS: Band 10 % (5-11); Eosinophils 1 % (0-10); Hemoglobin 10.3 g/dL (14.0-18.0); Lymphocytes 13 % (21-51); MDiff Complete? YES; Mean Corpuscular Hemoglobin 32.9 pg (27.0-31.0); Mean Corpuscular Volume 99.8 fL (78.0-98.0); Mean Platelet Volume 8.9 fL (7.4-10.4); Monocytes 3 % (0-10); Neutrophil 73 % (42-75); Platelet Count 159 thou/uL (130-400); RBC Distribution Width 11.9 % (11.5-14.5); Red Blood Cell (RBC) Count 3.13 mill/uL (4.70-6.10); White Blood Cell (WBC) Count 10.6 thou/uL (4.8-10.8)
[2020-02-14] MEDS: Tobramycin Sulfate 0.3 GM in Sodium Chloride 0.9% 7.5 ML NEB SCH ×3 (08:14→18:28)
[2020-02-14] MEDS: HumaLOG 300 UNITS/3 ML VIAL SC PRN (08:58)
[2020-02-14] MEDS: Enoxaparin Sodium 30 MG/0.3 ML SYRINGE SC SCH ×2 (09:30→21:21)
[2020-02-14] MEDS: Famotidine 20 MG TAB PO SCH ×2 (09:31→21:21)
[2020-02-14] MEDS: Gabapentin 300 MG CAP PO SCH (09:31)
[2020-02-14] MEDS: Saccharomyces boulardii 250 MG CAP PO SCH ×2 (09:32→21:22)
[2020-02-14] MEDS: Escitalopram Oxalate 10 mg Tablet PO SCH (09:32)
[2020-02-14] MEDS: Meropenem 2 GM in Sodium Chloride 0.9% 100 ML IVPB SCH ×2 (09:32→20:35)
[2020-02-14] MEDS: Ibuprofen 100 MG/5 ML UDCUP PER TUBE PRN (10:50)
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
[2020-02-14] MEDS: Melatonin 3 MG TAB PO SCH (21:21)
[2020-02-14] MEDS: Pregabalin 75 MG CAP PO SCH (21:22)
--- NOTE | 2020-02-14 23:27 | PRG ---
DATE OF SERVICE: 02/14/2020 SUBJECTIVE: The patient was seen during morning rounds, resting comfortably, on full mechanical ventilatory support. The patient continues to be on tobramycin nebs for acute Pseudomonas pneumonia. The patient is tolerating his tube feeds at goal and have a bowel movement. OBJECTIVE: Vital signs are stable. The patient continues to have fever. Urinary output is adequate for patient's age and weight. PLAN: Blood cultures were obtained today. We will follow up results. Continue meropenem to broaden antibiotic coverage. Continue full mechanical ventilatory support. Anticipate the patient for transfer to long-term care facility. The patient is stable for transfer at this time. Pending acceptance to a LTAC facility. Job ID: [id number]
[2020-02-15] MEDS: Meropenem 2 GM in Sodium Chloride 0.9% 100 ML IVPB SCH ×3 (01:12→17:57)
[2020-02-15] MEDS: Ibuprofen 100 MG/5 ML UDCUP PER TUBE PRN ×2 (01:26→20:15)
[2020-02-15] MEDS: traMADol HCl 50 MG TAB PO SCH ×4 (03:09→20:14)
[2020-02-15] MEDS: Acetaminophen 650 MG/20.3 ML UDCUP PER TUBE SCH ×4 (03:09→20:13)
[2020-02-15 04:30] LABS: Anion Gap 13 mmol/L (10-20); BUN (Urea Nitrogen) 27 mg/dL (8.9-20.6); Calc. Creatinine Clearance 218 mL/min (70-130); Carbon Dioxide 27 mmol/L (22-29); Chloride 98 mmol/L (98-107); Estimated GFR-MDRD Greater than 90; Glucose 153 mg/dL (70-105); Magnesium 2.3 mg/dL (1.6-2.6); Phosphorus 3.4 mg/dL (2.3-4.7); Potassium 3.8 mmol/L (3.5-5.1); Sodium 134 mmol/L (136-145)
[2020-02-15 05:54] LABS: Hemoglobin 10.2 g/dL (14.0-18.0); Mean Corpuscular HGB CONC 32.3 g/dL (32.0-36.0); Mean Corpuscular Hemoglobin 32.1 pg (27.0-31.0); Mean Corpuscular Volume 99.2 fL (78.0-98.0); Mean Platelet Volume 9.2 fL (7.4-10.4); Platelet Count 145 thou/uL (130-400); RBC Distribution Width 11.8 % (11.5-14.5); Red Blood Cell (RBC) Count 3.19 mill/uL (4.70-6.10); White Blood Cell (WBC) Count 10.3 thou/uL (4.8-10.8)
[2020-02-15 06:04] LABS: Band 20 % (5-11); Eosinophils 4 % (0-10); Lymphocytes 9 % (21-51); MDiff Complete? YES; Monocytes 2 % (0-10); Neutrophil 65 % (42-75)
--- NOTE | 2020-02-15 08:23 | RAD ---
PORTABLE CHEST: HISTORY: Followup pneumonia. FINDINGS: Heart size is within normal limits. A pacemaker is present. Patchy parenchymal lung changes that ar e stable. Tracheostomy tube is unchanged in position. IMPRESSION: Stable exam. POS: NORTH
[2020-02-15] MEDS: Famotidine 20 MG TAB PO SCH ×2 (08:36→20:13)
[2020-02-15] MEDS: Pregabalin 75 MG CAP PO SCH ×2 (08:36→20:14)
[2020-02-15] MEDS: Saccharomyces boulardii 250 MG CAP PO SCH ×2 (08:36→20:14)
[2020-02-15] MEDS: Enoxaparin Sodium 30 MG/0.3 ML SYRINGE SC SCH ×2 (08:36→20:15)
[2020-02-15] MEDS: Escitalopram Oxalate 10 mg Tablet PO SCH (08:38)
--- NOTE | 2020-02-15 12:01 | ULT ---
EXAM: Bilateral lower extremity venous Doppler HISTORY: Nonmobile patient. Patient is paraplegic and high risk for deep vein thrombus. FINDINGS: Grayscale, color-flow, Doppler evaluation, spectral analysis of the bilateral lower extremity venous structures is performed with 2-D imaging. The bilateral common femoral, superficial femoral, popliteal, posterior tibial, proximal greater saphenous and profunda femoral veins are imaged. There is normal luminal compressibility, flow, and augmentation in the visualized deep venous structu res of the bilateral lower extremities. IMPRESSION: No evidence of a deep vein thrombosis in the visualized deep venous structures bilateral lower extrem ities.
[2020-02-15] MEDS: Tobramycin Sulfate 0.3 GM in Sodium Chloride 0.9% 7.5 ML NEB SCH (12:23)
[2020-02-15] MEDS ORDERED: Nitroglycerin 50 MG/250 ML BOT 0 ML ONE (12:55)
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
[2020-02-15] MEDS: Melatonin 3 MG TAB PO SCH (20:15)
[2020-02-16] MEDS: Meropenem 2 GM in Sodium Chloride 0.9% 100 ML IVPB SCH (00:22)
[2020-02-16] MEDS: traMADol HCl 50 MG TAB PO SCH ×4 (02:47→21:03)
[2020-02-16] MEDS: Acetaminophen 650 MG/20.3 ML UDCUP PER TUBE SCH ×4 (02:47→21:03)
[2020-02-16] MEDS: Pregabalin 75 MG CAP PO SCH ×2 (08:40→21:02)
[2020-02-16] MEDS: Famotidine 20 MG TAB PO SCH ×2 (08:42→21:03)
[2020-02-16] MEDS: Escitalopram Oxalate 10 mg Tablet PO SCH (08:42)
[2020-02-16] MEDS: Enoxaparin Sodium 30 MG/0.3 ML SYRINGE SC SCH ×2 (08:43→21:03)
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
[2020-02-16] MEDS: Melatonin 3 MG TAB PO SCH (21:04)
[2020-02-17] MEDS: Acetaminophen 650 MG/20.3 ML UDCUP PER TUBE SCH ×4 (03:01→19:46)
[2020-02-17] MEDS: traMADol HCl 50 MG TAB PO SCH ×4 (03:02→20:03)
[2020-02-17] MEDS: Ibuprofen 100 MG/5 ML UDCUP PER TUBE PRN (03:27)
[2020-02-17] MEDS: Escitalopram Oxalate 10 mg Tablet PO SCH (08:33)
[2020-02-17] MEDS: Pregabalin 75 MG CAP PO SCH ×2 (08:33→19:52)
[2020-02-17] MEDS: Famotidine 20 MG TAB PO SCH ×2 (08:34→19:52)
[2020-02-17] MEDS: Enoxaparin Sodium 30 MG/0.3 ML SYRINGE SC SCH ×2 (08:34→19:46)
[2020-02-17] MEDS: Senokot S 8.6-50 MG TAB PER TUBE SCH ×2 (12:11→19:53)
[2020-02-17] MEDS: Bisacodyl 10 MG SUPP PR SCH (12:11)
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
[2020-02-17] MEDS: Melatonin 3 MG TAB PO SCH (19:55)
[2020-02-18] MEDS: Acetaminophen 650 MG/20.3 ML UDCUP PER TUBE SCH ×4 (03:00→20:35)
[2020-02-18] MEDS: traMADol HCl 50 MG TAB PO SCH ×4 (03:00→20:36)
[2020-02-18] MEDS: Senokot S 8.6-50 MG TAB PER TUBE SCH ×2 (10:21→20:38)
[2020-02-18] MEDS: Escitalopram Oxalate 10 mg Tablet PO SCH (10:22)
[2020-02-18] MEDS: Famotidine 20 MG TAB PO SCH ×2 (10:22→20:35)
[2020-02-18] MEDS: Enoxaparin Sodium 30 MG/0.3 ML SYRINGE SC SCH ×2 (10:23→20:35)
[2020-02-18] MEDS: Pregabalin 75 MG CAP PO SCH ×2 (10:23→20:37)
[2020-02-18] MEDS: Bisacodyl 10 MG SUPP PR SCH (10:24)
[2020-02-18 10:34] LABS: Actual Bicarbonate (HCO3a) 24.5 mEq/L (22-28); Base Excess (BEa) -0.6 mEq/L (-2.0 to +3.0); Calcium, Ionized (arterial) 1.22 mmol/L (1.12-1.30); Carboxyhemoglobin (COHb) 0.3 gm% (0.0-3.0); O2 Tension (PaO2), arterial 109.9 mmHg (80.0-100.0); Potassium - ABG Lab 4.25 mmol/L (3.70-5.30); pH, Arterial 7.38 (7.35-7.45)
[2020-02-18 10:36] LABS: Puncture Site RBA
--- NOTE | 2020-02-18 13:06 | PDOC.PALPN ---
Palliative Progress Note - Subjective Resting, sister at bedside. Jesus opens his eyes intermittently and smiles, but returns to sleep. Denies any specific complaints. - Objective Vital Signs: Vital Signs - Most Recent Temp Pulse Resp BP Pulse Ox 103.2 F H 79 16 110/75 98 02/18/20 08:00 02/18/20 10:38 02/18/20 10:00 02/17/20 15:07 02/18/20 08:00 - Physical Exam Constitutional: NAD HEENT: EOMI, moist MMs, PERRLA, sclera anicteric Respiratory: clear to auscultation bilateral, no wheezing Deviation from normal: mechanical ventilation via trach Cardiovascular: RRR Gastrointestinal: incontinent Deviation from normal: PEG Genitourinary: neil catheter Musculoskeletal: diffuse muscle atrophy Deviation from normal: hand and foot splint/support in place Deviation from normal: Quadriplegic Skin: cap refill <2 seconds Deviation from normal: wound to buttock as per photo Psychiatric: A&O x 3, normal mood - Assessment (1) Respiratory failure after trauma Code(s): J96.90 - RESPIRATORY FAILURE, UNSP, UNSP W HYPOXIA OR HYPERCAPNIA Current Visit: Yes Status: Acute (2) Quadriplegia Code(s): G82.50 - QUADRIPLEGIA, UNSPECIFIED Current Visit: Yes Status: Acute (3) Palliative care encounter Code(s): Z51.5 - ENCOUNTER FOR PALLIATIVE CARE Current Visit: Yes Status: Acute - Plan Plan: Family and patient support. Education today in relation to Temperature regulation and spinal cord injury. Discussed the body's inability to communicate effectively the temperature sensation with cervical spinal cord injuries, the body does not respond properly secondary to disruption in communication to hypothalamus to communicate to the sympathetic nervous system. Education in relation to need to quickly respond to extreme elevations in temperature to prevent harm. Discussed importance of staff responding quickly, with needed measures including cooling blanket, medication. Discussed importance of allowing staff to care for Jesus as needed to promote optimal healing environment. Information provided for family. Created "Education binder" to serve as a resource Will continue to communicate with Jesus and family in relation to Spinal Cord injuries/care/resources [45] minutes spent on this encounter with >50% of the time in counseling and coordination of care. - ROS Constitutional: alert
[2020-02-18] MEDS: Melatonin 3 MG TAB PO SCH (20:38)
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
[2020-02-19] MEDS: traMADol HCl 50 MG TAB PO SCH ×2 (02:30→09:11)
[2020-02-19] MEDS: Acetaminophen 650 MG/20.3 ML UDCUP PER TUBE SCH ×4 (02:31→20:26)
[2020-02-19] MEDS: Enoxaparin Sodium 30 MG/0.3 ML SYRINGE SC SCH ×2 (09:09→20:26)
[2020-02-19] MEDS: Famotidine 20 MG TAB PO SCH ×2 (09:10→20:27)
[2020-02-19] MEDS: Senokot S 8.6-50 MG TAB PER TUBE SCH ×2 (09:10→20:27)
[2020-02-19] MEDS: Pregabalin 75 MG CAP PO SCH ×2 (09:12→20:27)
[2020-02-19] MEDS: Escitalopram Oxalate 10 mg Tablet PO SCH (09:12)
[2020-02-19] MEDS: Bisacodyl 10 MG SUPP PR SCH (09:13)
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
[2020-02-19] MEDS: Melatonin 3 MG TAB PO SCH (20:27)
[2020-02-19] MEDS ORDERED: traMADol HCl 50 MG TAB PO SCH (23:59)
[2020-02-20] MEDS: traMADol HCl 50 MG TAB PO SCH ×4 (02:44→20:30)
[2020-02-20] MEDS: Acetaminophen 650 MG/20.3 ML UDCUP PER TUBE SCH ×4 (02:44→20:29)
[2020-02-20] MEDS: Bisacodyl 10 MG SUPP PR SCH (09:17)
[2020-02-20] MEDS: Senokot S 8.6-50 MG TAB PER TUBE SCH ×2 (09:17→20:32)
[2020-02-20] MEDS: Famotidine 20 MG TAB PO SCH ×2 (09:20→20:29)
[2020-02-20] MEDS: Pregabalin 75 MG CAP PO SCH ×2 (09:20→20:30)
[2020-02-20] MEDS: Enoxaparin Sodium 30 MG/0.3 ML SYRINGE SC SCH ×2 (09:20→20:31)
[2020-02-20] MEDS: Escitalopram Oxalate 10 mg Tablet PO SCH (09:20)
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
[2020-02-20] MEDS: Melatonin 3 MG TAB PO SCH (20:29)
[2020-02-20] MEDS: traMADol HCl 50 MG TAB PO PRN (23:57)
[2020-02-21] MEDS: traMADol HCl 50 MG TAB PO SCH ×4 (03:35→20:41)
[2020-02-21] MEDS: Acetaminophen 650 MG/20.3 ML UDCUP PER TUBE SCH ×4 (03:35→20:42)
[2020-02-21] MEDS: Ibuprofen 100 MG/5 ML UDCUP PER TUBE PRN (06:11)
[2020-02-21] MEDS: Famotidine 20 MG TAB PO SCH ×2 (08:55→20:42)
[2020-02-21] MEDS: Escitalopram Oxalate 10 mg Tablet PO SCH (08:56)
[2020-02-21] MEDS: Pregabalin 75 MG CAP PO SCH ×2 (08:56→20:40)
[2020-02-21] MEDS: Bisacodyl 10 MG SUPP PR SCH (09:00)
[2020-02-21] MEDS: Senokot S 8.6-50 MG TAB PER TUBE SCH ×2 (09:02→20:42)
[2020-02-21] MEDS: Enoxaparin Sodium 30 MG/0.3 ML SYRINGE SC SCH ×2 (09:02→20:43)
[2020-02-21 13:38] LABS: #Eosinphils 0.2 thou/uL (0.0-0.7); #Lymphocytes 1.3 thou/uL (1.20-3.40); #Monocytes 0.7 thou/uL (0.11-0.59); #Neutrophils 6.8 thou/uL (1.40-6.50); %Basophils 0.2 % (0.0-1.0); %Eosinophils 2.1 % (0.0-10.0); %Lymphocytes 14.8 % (21.0-51.0); %Monocytes 7.8 % (0.0-10.0); %Neutrophils 75.1 % (42.0-75.0); Hemoglobin 11.5 g/dL (14.0-18.0); Mean Corpuscular HGB CONC 33.5 g/dL (32.0-36.0); Mean Corpuscular Hemoglobin 33.5 pg (27.0-31.0); Mean Platelet Volume 8.9 fL (7.4-10.4); Platelet Count 175 thou/uL (130-400); RBC Distribution Width 12.1 % (11.5-14.5); Red Blood Cell (RBC) Count 3.45 mill/uL (4.70-6.10); White Blood Cell (WBC) Count 9.1 thou/uL (4.8-10.8)
[2020-02-21 14:00] LABS: Phosphorus 3.9 mg/dL (2.3-4.7)
[2020-02-21 14:02] LABS: Anion Gap 13 mmol/L (10-20); BUN (Urea Nitrogen) 27 mg/dL (8.9-20.6); Calc. Creatinine Clearance 230 mL/min (70-130); Calcium 9.5 mg/dL (7.8-10.44); Carbon Dioxide 28 mmol/L (22-29); Chloride 96 mmol/L (98-107); Estimated GFR-MDRD Greater than 90; Glucose 158 mg/dL (70-105); Magnesium 2.3 mg/dL (1.6-2.6); Potassium 3.4 mmol/L (3.5-5.1); Sodium 134 mmol/L (136-145)
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
[2020-02-21] MEDS ORDERED: Potassium Chloride 40 MEQ in Sodium Chloride 0.9% 250 ML 250 ML IVPB SCH (15:00)
[2020-02-21] MEDS: Melatonin 3 MG TAB PO SCH (20:43)
[2020-02-22] MEDS: Acetaminophen 650 MG/20.3 ML UDCUP PER TUBE SCH ×4 (03:58→20:33)
[2020-02-22] MEDS: traMADol HCl 50 MG TAB PO SCH ×4 (03:58→20:35)
[2020-02-22 08:05] LABS: Anion Gap 14 mmol/L (10-20); BUN (Urea Nitrogen) 25 mg/dL (8.9-20.6); Calc. Creatinine Clearance 228 mL/min (70-130); Carbon Dioxide 30 mmol/L (22-29); Chloride 98 mmol/L (98-107); Estimated GFR-MDRD Greater than 90; Glucose 137 mg/dL (70-105); Potassium 5.3 mmol/L (3.5-5.1); Sodium 137 mmol/L (136-145)
[2020-02-22] MEDS: Escitalopram Oxalate 10 mg Tablet PO SCH (10:15)
[2020-02-22] MEDS: Pregabalin 75 MG CAP PO SCH ×2 (10:16→20:47)
[2020-02-22] MEDS: Famotidine 20 MG TAB PO SCH ×2 (10:16→20:33)
[2020-02-22] MEDS: Enoxaparin Sodium 30 MG/0.3 ML SYRINGE SC SCH ×2 (10:17→20:35)
[2020-02-22] MEDS: Senokot S 8.6-50 MG TAB PER TUBE SCH (10:29)
[2020-02-22] MEDS: Bisacodyl 10 MG SUPP PR SCH (10:29)
[2020-02-22] MEDS ORDERED: Senokot S 8.6-50 MG TAB PER TUBE PRN (10:47)
[2020-02-22] MEDS: Scopolamine 1.5 mg/72 hour Patch TD SCH (11:25)
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
[2020-02-22] MEDS ORDERED: Norepinephrine 8 MG/0.9% NS 250 ML ONE (17:49)
[2020-02-22] MEDS: Melatonin 3 MG TAB PO SCH (20:34)
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
[2020-02-23] MEDS: traMADol HCl 50 MG TAB PO SCH ×4 (03:59→20:16)
[2020-02-23] MEDS: Acetaminophen 650 MG/20.3 ML UDCUP PER TUBE SCH ×4 (03:59→20:10)
[2020-02-23 05:07] LABS: #Eosinphils 0.2 thou/uL (0.0-0.7); #Lymphocytes 1.5 thou/uL (1.20-3.40); #Monocytes 0.6 thou/uL (0.11-0.59); #Neutrophils 6.6 thou/uL (1.40-6.50); %Eosinophils 2.4 % (0.0-10.0); %Lymphocytes 16.4 % (21.0-51.0); %Monocytes 6.8 % (0.0-10.0); %Neutrophils 74.4 % (42.0-75.0); Hemoglobin 11.4 g/dL (14.0-18.0); Mean Corpuscular HGB CONC 32.6 g/dL (32.0-36.0); Mean Corpuscular Hemoglobin 32.8 pg (27.0-31.0); Mean Platelet Volume 8.7 fL (7.4-10.4); Platelet Count 208 thou/uL (130-400); RBC Distribution Width 12.1 % (11.5-14.5); Red Blood Cell (RBC) Count 3.46 mill/uL (4.70-6.10); White Blood Cell (WBC) Count 8.9 thou/uL (4.8-10.8)
[2020-02-23 05:29] LABS: Anion Gap 14 mmol/L (10-20); BUN (Urea Nitrogen) 25 mg/dL (8.9-20.6); Calc. Creatinine Clearance 220 mL/min (70-130); Calcium 9.6 mg/dL (7.8-10.44); Carbon Dioxide 31 mmol/L (22-29); Chloride 96 mmol/L (98-107); Estimated GFR-MDRD Greater than 90; Glucose 133 mg/dL (70-105); Magnesium 2.3 mg/dL (1.6-2.6); Phosphorus 4.4 mg/dL (2.3-4.7); Potassium 4.2 mmol/L (3.5-5.1); Sodium 137 mmol/L (136-145)
[2020-02-23] MEDS: Escitalopram Oxalate 10 mg Tablet PO SCH (08:54)
[2020-02-23] MEDS: Famotidine 20 MG TAB PO SCH ×2 (08:54→20:12)
[2020-02-23] MEDS: Pregabalin 75 MG CAP PO SCH ×2 (08:56→20:13)
[2020-02-23] MEDS: Enoxaparin Sodium 30 MG/0.3 ML SYRINGE SC SCH ×2 (08:56→20:11)
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
[2020-02-23] MEDS: Melatonin 3 MG TAB PO SCH (20:11)
[2020-02-23] MEDS: Senokot S 8.6-50 MG TAB PER TUBE SCH (20:11)
[2020-02-23] MEDS: traMADol HCl 50 MG TAB PO PRN (20:12)
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
[2020-02-24] MEDS: traMADol HCl 50 MG TAB PO SCH ×4 (03:30→20:31)
[2020-02-24] MEDS: Acetaminophen 650 MG/20.3 ML UDCUP PER TUBE SCH ×4 (03:30→20:30)
[2020-02-24] MEDS: Pregabalin 75 MG CAP PO SCH ×2 (08:17→20:31)
[2020-02-24] MEDS: Senokot S 8.6-50 MG TAB PER TUBE SCH ×2 (08:18→20:30)
[2020-02-24] MEDS: Escitalopram Oxalate 20 mg Tablet PO SCH (08:18)
[2020-02-24] MEDS: Famotidine 20 MG TAB PO SCH ×2 (08:18→20:30)
[2020-02-24] MEDS: Enoxaparin Sodium 30 MG/0.3 ML SYRINGE SC SCH ×2 (08:18→20:30)
[2020-02-24 12:40] VITALS: BMI 27.1
[2020-02-24] MEDS: traMADol HCl 50 MG TAB PO PRN (16:45)
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
[2020-02-24] MEDS: Melatonin 3 MG TAB PO SCH (20:32)
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
[2020-02-25] MEDS: Acetaminophen 650 MG/20.3 ML UDCUP PER TUBE SCH ×4 (03:35→20:33)
[2020-02-25] MEDS: traMADol HCl 50 MG TAB PO SCH ×4 (03:35→20:36)
[2020-02-25] MEDS: Pregabalin 75 MG CAP PO SCH ×2 (08:01→20:33)
[2020-02-25] MEDS: Senokot S 8.6-50 MG TAB PER TUBE SCH ×2 (08:01→20:35)
[2020-02-25] MEDS: Famotidine 20 MG TAB PO SCH ×2 (08:01→20:33)
[2020-02-25] MEDS: Enoxaparin Sodium 30 MG/0.3 ML SYRINGE SC SCH ×2 (08:02→20:35)
[2020-02-25] MEDS: Escitalopram Oxalate 20 mg Tablet PO SCH (08:02)
[2020-02-25] MEDS: Scopolamine 1.5 mg/72 hour Patch TD SCH (10:08)
--- NOTE | 2020-02-25 13:01 | PDOC.PALPN ---
Palliative Progress Note - Objective Vital Signs: Vital Signs - Most Recent Temp Pulse Resp BP Pulse Ox 99.2 F 80 16 117/79 100 02/25/20 12:00 02/25/20 10:30 02/25/20 12:00 02/25/20 10:30 02/25/20 08:00 - Assessment (1) Respiratory failure after trauma Code(s): J96.90 - RESPIRATORY FAILURE, UNSP, UNSP W HYPOXIA OR HYPERCAPNIA Current Visit: Yes Status: Acute (2) Quadriplegia Code(s): G82.50 - QUADRIPLEGIA, UNSPECIFIED Current Visit: Yes Status: Acute (3) Palliative care encounter Code(s): Z51.5 - ENCOUNTER FOR PALLIATIVE CARE Current Visit: Yes Status: Acute - Plan Plan: Patient sister and partner Angelica at bedside. Patient is electing to stop aggressive therapies and withdraw care. He is decisional. Notified Trauma services and Spiritual Care. Communicated with patient and family that we will support as needed. Discussed allowing family and friends that Mr Centeno would like to say good bye to can come in, but it is up to him to decide. [] minutes spent on this encounter with >50% of the time in counseling and coordination of care.
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
[2020-02-25] MEDS: traMADol HCl 50 MG TAB PO PRN (18:47)
[2020-02-25] MEDS: Melatonin 3 MG TAB PO SCH (20:35)
[2020-02-26] MEDS: Acetaminophen 650 MG/20.3 ML UDCUP PER TUBE SCH ×4 (02:33→20:15)
[2020-02-26] MEDS: traMADol HCl 50 MG TAB PO SCH ×4 (02:33→20:17)
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
[2020-02-26] MEDS: Pregabalin 75 MG CAP PO SCH ×2 (09:10→20:16)
[2020-02-26] MEDS: Enoxaparin Sodium 30 MG/0.3 ML SYRINGE SC SCH ×2 (09:10→20:16)
[2020-02-26] MEDS: Famotidine 20 MG TAB PO SCH ×2 (09:12→20:16)
[2020-02-26] MEDS: Escitalopram Oxalate 20 mg Tablet PO SCH (09:13)
[2020-02-26] MEDS: Senokot S 8.6-50 MG TAB PER TUBE SCH ×2 (09:13→20:17)
[2020-02-26] MEDS: Morphine 4 MG/ML VIAL SLOW IVP PRN (09:30)
[2020-02-26] MEDS: Lorazepam 2 MG/ML VIAL SLOW IVP PRN (18:09)
[2020-02-26] MEDS: Melatonin 3 MG TAB PO SCH (20:15)
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
[2020-02-27] MEDS: traMADol HCl 50 MG TAB PO SCH ×2 (02:29→08:14)
[2020-02-27] MEDS: Acetaminophen 650 MG/20.3 ML UDCUP PER TUBE SCH ×2 (02:29→08:12)
[2020-02-27 02:38] VITALS: BP 108/57
[2020-02-27] MEDS: Lorazepam 2 MG/ML VIAL SLOW IVP PRN ×3 (03:09→10:23)
[2020-02-27] MEDS: Enoxaparin Sodium 30 MG/0.3 ML SYRINGE SC SCH (08:13)
[2020-02-27] MEDS: Famotidine 20 MG TAB PO SCH (08:13)
[2020-02-27] MEDS: Pregabalin 75 MG CAP PO SCH (08:13)
[2020-02-27] MEDS: Escitalopram Oxalate 20 mg Tablet PO SCH (08:14)
[2020-02-27] MEDS: Senokot S 8.6-50 MG TAB PER TUBE SCH (08:15)
[2020-02-27 08:37] VITALS: TEMP 102.3
[2020-02-27] MEDS: Morphine 4 MG/ML VIAL SLOW IVP PRN ×2 (10:17→10:20)
[2020-02-27] MEDS ORDERED: Morphine 4 MG/ML VIAL SLOW IVP PRN (11:11)
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
== END 2020-02-27 13:20 | disposition expired | DRG 3 ==
LOC: ERS 02:22 → ERHOLD 04:48 → CCU 08:31
PROVIDERS: ADMIT Surgery; ATTEND Surgery
PROC: 5A1955Z Respiratory Ventilation, Greater than 96 Consecutive Hours (ICD-10-PCS; principal; 2020-01-22)
PROC: 05H633Z Insertion of Infusion Device into Left Subclavian Vein, Percutaneous Approach (ICD-10-PCS; 2020-01-22)
PROC: 3E033XZ Introduction of Vasopressor into Peripheral Vein, Percutaneous Approach (ICD-10-PCS; 2020-01-22)
PROC: 3E0234Z Introduction of Serum, Toxoid and Vaccine into Muscle, Percutaneous Approach (ICD-10-PCS; 2020-01-22)
PROC: 0B113F4 Bypass Trachea to Cutaneous with Tracheostomy Device, Percutaneous Approach (ICD-10-PCS; 2020-01-23)
PROC: 0DH63UZ Insertion of Feeding Device into Stomach, Percutaneous Approach (ICD-10-PCS; 2020-01-23)
PROC: 0B9B8ZZ Drainage of Left Lower Lobe Bronchus, Via Natural or Artificial Opening Endoscopic (ICD-10-PCS; 2020-01-26)
PROC: 0B948ZZ Drainage of Right Upper Lobe Bronchus, Via Natural or Artificial Opening Endoscopic (ICD-10-PCS; 2020-01-26)
PROC: 0B988ZZ Drainage of Left Upper Lobe Bronchus, Via Natural or Artificial Opening Endoscopic (ICD-10-PCS; 2020-01-26)
PROC: 0B968ZZ Drainage of Right Lower Lobe Bronchus, Via Natural or Artificial Opening Endoscopic (ICD-10-PCS; 2020-01-26)
PROC: 0JH606Z Insertion of Pacemaker, Dual Chamber into Chest Subcutaneous Tissue and Fascia, Open Approach (ICD-10-PCS; 2020-01-28)
PROC: 02HK3JZ Insertion of Pacemaker Lead into Right Ventricle, Percutaneous Approach (ICD-10-PCS; 2020-01-28)
PROC: 02H63JZ Insertion of Pacemaker Lead into Right Atrium, Percutaneous Approach (ICD-10-PCS; 2020-01-28)
PROC: 0BCB8ZZ Extirpation of Matter from Left Lower Lobe Bronchus, Via Natural or Artificial Opening Endoscopic (ICD-10-PCS; 2020-01-31)
PROC: 0BC48ZZ Extirpation of Matter from Right Upper Lobe Bronchus, Via Natural or Artificial Opening Endoscopic (ICD-10-PCS; 2020-01-31)
PROC: 0BC88ZZ Extirpation of Matter from Left Upper Lobe Bronchus, Via Natural or Artificial Opening Endoscopic (ICD-10-PCS; 2020-01-31)
PROC: 0BC68ZZ Extirpation of Matter from Right Lower Lobe Bronchus, Via Natural or Artificial Opening Endoscopic (ICD-10-PCS; 2020-01-31)
PROC: 0BCB8ZZ Extirpation of Matter from Left Lower Lobe Bronchus, Via Natural or Artificial Opening Endoscopic (ICD-10-PCS; 2020-02-10)
PROC: 0BC48ZZ Extirpation of Matter from Right Upper Lobe Bronchus, Via Natural or Artificial Opening Endoscopic (ICD-10-PCS; 2020-02-10)
PROC: 0BC88ZZ Extirpation of Matter from Left Upper Lobe Bronchus, Via Natural or Artificial Opening Endoscopic (ICD-10-PCS; 2020-02-10)
PROC: 0BC68ZZ Extirpation of Matter from Right Lower Lobe Bronchus, Via Natural or Artificial Opening Endoscopic (ICD-10-PCS; 2020-02-10)
DX: S14.13 Anterior cord syndrome of cervical spinal cord (principal); J96.00 Acute respiratory failure, unspecified whether with hypoxia or hypercapnia; G82.51 Quadriplegia, C1-C4 complete; S06.4X9A Epidural hemorrhage with loss of consciousness of unspecified duration, initial encounter; Z51.5 Encounter for palliative care; Z20.828 Contact with and (suspected) exposure to other viral communicable diseases; J69.0 Pneumonitis due to inhalation of food and vomit; J15.1 Pneumonia due to Pseudomonas; J15.211 Pneumonia due to Methicillin susceptible Staphylococcus aureus; R40.2312 Coma scale, best motor response, none, at arrival to emergency department; R40.2112 Coma scale, eyes open, never, at arrival to emergency department; R40.2212 Coma scale, best verbal response, none, at arrival to emergency department; E87.1 Hypo-osmolality and hyponatremia; J90 Pleural effusion, not elsewhere classified; E87.2 Acidosis; S12.110A Anterior displaced Type II dens fracture, initial encounter for closed fracture; R57.8 Other shock; I46.8 Cardiac arrest due to other underlying condition; Y90.7 Blood alcohol level of 200-239 mg/100 ml; F10.129 Alcohol abuse with intoxication, unspecified; Y93.11 Activity, swimming; S20.319A Abrasion of unspecified front wall of thorax, initial encounter; F41.9 Anxiety disorder, unspecified; L89.156 Pressure-induced deep tissue damage of sacral region; E83.39 Other disorders of phosphorus metabolism; R00.1 Bradycardia, unspecified; D70.9 Neutropenia, unspecified; R50.81 Fever presenting with conditions classified elsewhere; W16.511A Jumping or diving into swimming pool striking water surface causing drowning and submersion, initial encounter; Y92.34 Swimming pool (public) as the place of occurrence of the external cause; Z23 Encounter for immunization
CPT/HCPCS: 31624; 33208; 36415; 36416; 36556; 51702; 70450; 71045; 71260; 72125; 72141; 74177; 80048; 80053; 80076; 80202; 80306; 80307; 81001; 81003; 81015; 82805; 83605; 83690; 83735; 83880; 84100; 84134; 84146; 85007; 85025; 85027; 85610; 85730; 86140; 86850; 86900; 86901; 87040; 87070; 87077; 87086; 87186; 87205; 87635; 90471; 90715; 92950; 93005; 93010; 93970; 94003; 94640; 94760; 96365; 96366; 96375; 96376; 99292; C1785; C1898; G0390; J0171; J0461; J0690; J0692; J1100; J1580; J1650; J1940; J2060; J2185; J2248; J2250; J2270; J2543; J3010; J3260; J3370; J3480; J3490; J7030; J7050; J7620; P9045; P9047; Q9967; S0020; S0028; U0003